=== PATIENT | male | born 1940 | race Caucasian/White ===

== ENCOUNTER → 2018-12-13 | Outpatient (CLI) | payer MEDICARE, OTHER, SELFPAY ==
[2018-12-13 07:52] VITALS: BP 128/63; PULSE 69; RESP 16; TEMP 36.4; O2SAT 98; BMI 26.8
== END | disposition home or self-care (01) ==
PROVIDERS: Family Provider Family Medicine; PCP Family Medicine; Referring Provider Internal Medicine Rheumatology; Visit Provider Internal Medicine Rheumatology
DX: L40.59 Other psoriatic arthropathy (principal)
CPT/HCPCS: 96365; J7050; A4216; J1602

== ENCOUNTER → 2019-01-10 | Outpatient (CLI) | payer MEDICARE, OTHER, SELFPAY ==
[2018-12-13 07:52] VITALS: BMI 26.8
[2019-01-10 07:48] VITALS: BP 122/68; PULSE 61; RESP 18; TEMP 36.5; O2SAT 100; BMI 26.3
== END | disposition home or self-care (01) ==
LOC: MEDOUTP 07:15
PROVIDERS: Family Provider Family Medicine; PCP Family Medicine; Referring Provider Internal Medicine Rheumatology; Visit Provider Internal Medicine Rheumatology
DX: L40.59 Other psoriatic arthropathy (principal)
CPT/HCPCS: 96365; J7050; A4216; J1602

== ENCOUNTER → 2019-03-07 | Outpatient (CLI) | payer MEDICARE, OTHER, SELFPAY ==
[2019-01-10 07:48] VITALS: BMI 26.3
[2019-03-07 07:51] VITALS: BP 160/76; PULSE 67; RESP 18; TEMP 36.3; O2SAT 97; BMI 27.3
== END | disposition home or self-care (01) ==
LOC: MEDOUTP 07:35
PROVIDERS: Family Provider Family Medicine; PCP Family Medicine; Referring Provider Internal Medicine Rheumatology; Visit Provider Internal Medicine Rheumatology
DX: L40.59 Other psoriatic arthropathy (principal)
CPT/HCPCS: 96365; J7050; A4216; J1602

== ENCOUNTER → 2019-05-01 07:35 | Outpatient (CLI) | payer MEDICARE, OTHER, SELFPAY ==
[2019-03-07 07:51] VITALS: BMI 27.3
[2019-05-01 07:52] VITALS: BP 145/71; PULSE 68; RESP 16; TEMP 35.6; O2SAT 98; BMI 27.1
[2019-05-01 09:39] VITALS: BP 165/73; PULSE 57; RESP 16
== END ==
PROVIDERS: Family Provider Family Medicine; PCP Family Medicine; Referring Provider Internal Medicine Rheumatology; Visit Provider Internal Medicine Rheumatology
DX: L40.50 Arthropathic psoriasis, unspecified (principal)
CPT/HCPCS: 96365; J7050; A4216; J1602

== ENCOUNTER → 2019-06-26 07:39 | Outpatient (CLI) | payer MEDICARE, OTHER, SELFPAY ==
[2019-05-01 07:52] VITALS: BMI 27.1
[2019-06-26 07:47] VITALS: BP 157/74; PULSE 83; RESP 16; TEMP 36.2; O2SAT 91; BMI 27.4
[2019-06-26 09:29] VITALS: BP 148/73; PULSE 62; RESP 16
== END ==
PROVIDERS: Family Provider Family Medicine; PCP Family Medicine; Referring Provider Internal Medicine Rheumatology; Visit Provider Internal Medicine Rheumatology
DX: L40.59 Other psoriatic arthropathy (principal)
CPT/HCPCS: 96365; J7050; A4216; J1602

== ENCOUNTER → 2019-08-21 | Outpatient (CLI) | payer MEDICARE, OTHER, SELFPAY ==
[2019-05-01 07:52] VITALS: BMI 27.1
[2019-06-26 07:47] VITALS: BMI 27.4
[2019-08-21 07:51] VITALS: BP 137/76; PULSE 78; RESP 18; TEMP 36.3; O2SAT 98; BMI 26.9
[2019-08-21] MEDS: 0.9% NaCl Peripheral Flush Adult/Peds IV (08:04)
[2019-08-21] MEDS: 0.9% NaCl IVPB Med Flush (250 mL) 15 ML IV (08:51)
== END | disposition home or self-care (01) ==
LOC: MEDOUTP 07:37
PROVIDERS: PCP Family Medicine; Referring Provider Internal Medicine Rheumatology; Visit Provider Internal Medicine Rheumatology
DX: L40.59 Other psoriatic arthropathy (principal)
CPT/HCPCS: 96365; J7050; A4216; J1602

== ENCOUNTER → 2019-10-16 07:52 | Outpatient (CLI) | payer MEDICARE, OTHER, SELFPAY ==
[2019-06-26 07:47] VITALS: BMI 27.4
[2019-08-21 07:51] VITALS: BMI 26.9
[2019-10-16] MEDS: 0.9% NaCl Peripheral Flush Adult/Peds IV (08:19)
[2019-10-16] MEDS: 0.9% NaCl IVPB Med Flush (250 mL) 15 ML IV (08:25)
[2019-10-16 08:32] VITALS: BP 129/70; PULSE 72; RESP 16; TEMP 36.6; O2SAT 99; BMI 25.7
== END ==
PROVIDERS: PCP Family Medicine; Referring Provider Internal Medicine Rheumatology; Visit Provider Internal Medicine Rheumatology
DX: L40.59 Other psoriatic arthropathy (principal); L40.8 Other psoriasis; M15.9 Polyosteoarthritis, unspecified; M48.061 Spinal stenosis, lumbar region without neurogenic claudication; Z85.46 Personal history of malignant neoplasm of prostate; Z79.899 Other long term (current) drug therapy
CPT/HCPCS: 96365; 36415; 80053; 85025; J7050; A4216; J1602

== ENCOUNTER → 2019-10-16 | Outpatient (CLI) | payer MEDICARE, OTHER, SELFPAY ==
[2019-06-26 07:47] VITALS: BMI 27.4
[2019-10-16 08:32] VITALS: BMI 25.7
[2019-10-16 12:41] LABS: Absolute Lymphocyte Count 0.92 X10^3/uL (0.83-4.51); Absolute Neutrophil Count 3.2 X10^3/uL (2.0-7.7); Basophil# 0.05 X10^3/uL; Basophil% 0.9 % (0-1); Eosinophil# 0.28 X10^3/uL; Eosinophils% 5.1 % (0-5); Hematocrit 40.7 % (40-54); Lymphocyte # 0.92 X10^3/ul (4.0); Lymphocyte % 16.8 % (19-41); Mean Corp Hgb Conc 31.9 g/dL (32-36); Mean Corpuscular Hgb 32.2 pg (27.0-32.0); Mean Corpuscular Volume 100.7 fL (80-94); Mean Platelet Vol. 10.7 fl (6.2-12.0); Monocyte% 18.2 % (0-10); NRBC Flagged by Analyzer 0 % (0-5); Neutrophil % 58.5 % (47-70); Platelet Count 203 K/mm3 (150-450); RBC Distribution Width CV 16.1 % (11.6-14.6); RBC Distribution Width SD 59.2 fl (35.1-43.9); Red Blood Count 4.04 M/mm3 (4.6-6.2); White Blood Count 5.5 K/mm3 (4.4-11.0)
[2019-10-16 13:01] LABS: ALB/GLOB Ratio 1.2 RATIO (0.9-2.4); AST(SGOT) 23 U/L (15-37); Alanine Aminotransfer ALT/SGPT 26 U/L (16-61); Albumin, Serum 3.6 g/dL (3.2-5.0); Alkaline Phosphatase 50 U/L (45-117); Anion Gap 8 (5-15); BUN 19 mg/dL (7-18); BUN/Creat Ratio 19.5 RATIO (10-20); Calcium,Total 9.1 mg/dL (8.5-10.1); Chloride 105 mmol/L (98-107); Creatinine, Serum 0.97 mg/dL (0.70-1.30); EST Glomerular Filtration Rate 79 mL/min (>60); Est Glom Filt Rate - Afr Amer 96 mL/min (>60); Globulin 2.9 g/dL (2.2-4.2); Glucose 105 mg/dL (74-106); Potassium 4.2 mmol/L (3.5-5.1); Protein, Total 6.5 g/dL (6.4-8.2); Sodium Level 139 mmol/L (136-145)
== END | disposition home or self-care (01) ==
LOC: MTLAB 09:38
PROVIDERS: PCP Family Medicine; Referring Provider Internal Medicine Rheumatology; Visit Provider Internal Medicine Rheumatology
DX: L40.59 Other psoriatic arthropathy (principal)
CPT/HCPCS: 36415; 80053; 85025

== ENCOUNTER → 2019-12-12 | Outpatient (CLI) | payer MEDICARE, OTHER, SELFPAY ==
[2019-08-21 07:51] VITALS: BMI 26.9
[2019-10-16 08:32] VITALS: BMI 25.7
[2019-12-12 08:10] VITALS: BP 135/67; PULSE 65; RESP 16; TEMP 36.2; O2SAT 100; BMI 25.6
[2019-12-12] MEDS: 0.9% NaCl Peripheral Flush Adult/Peds IV (08:23)
[2019-12-12] MEDS: 0.9% NaCl IVPB Med Flush (250 mL) 15 ML IV (08:42)
[2019-12-12 09:38] VITALS: BP 140/78; PULSE 55; RESP 16; O2SAT 100
== END | disposition home or self-care (01) ==
LOC: MEDOUTP 08:03
PROVIDERS: PCP Family Medicine; Referring Provider Internal Medicine Rheumatology; Visit Provider Internal Medicine Rheumatology
DX: L40.59 Other psoriatic arthropathy (principal)
CPT/HCPCS: 96365; J7050; A4216; J1602

== ENCOUNTER → 2020-02-07 | Outpatient (CLI) | payer MEDICARE, OTHER, SELFPAY ==
[2019-12-12 08:10] VITALS: BMI 25.6
[2020-02-07 08:02] VITALS: BP 153/80; PULSE 83; RESP 16; TEMP 36.3; O2SAT 99; BMI 25.9
[2020-02-07] MEDS: 0.9% NaCl IVPB Med Flush (250 mL) 15 ML IV (08:31)
[2020-02-07] MEDS: 0.9% NaCl Peripheral Flush Adult/Peds IV (08:34)
[2020-02-07 09:18] VITALS: BP 143/73; PULSE 56; RESP 18; TEMP 36.2; O2SAT 100
== END | disposition home or self-care (01) ==
LOC: MEDOUTP 07:42
PROVIDERS: PCP Family Medicine; Referring Provider Internal Medicine Rheumatology; Visit Provider Internal Medicine Rheumatology
DX: L40.59 Other psoriatic arthropathy (principal)
CPT/HCPCS: 96413; J7050; A4216; J1602

== ENCOUNTER → 2020-04-03 07:50 | Outpatient (CLI) | payer MEDICARE, OTHER, SELFPAY ==
[2019-12-12 08:10] VITALS: BMI 25.6
[2020-02-07 08:02] VITALS: BMI 25.9
[2020-04-03] MEDS: 0.9% NaCl IVPB Med Flush (250 mL) 15 ML IV (08:12)
[2020-04-03] MEDS: 0.9% NaCl Peripheral Flush Adult/Peds IV (08:13)
[2020-04-03 08:15] VITALS: BP 126/96; PULSE 76; RESP 16; TEMP 36.9; O2SAT 100; BMI 26.5
[2020-04-03 09:28] VITALS: BP 146/76; PULSE 74; RESP 16; TEMP 36.8
== END ==
PROVIDERS: PCP Family Medicine; Visit Provider Internal Medicine Rheumatology
DX: L40.59 Other psoriatic arthropathy (principal)
CPT/HCPCS: 96365; J7050; A4216; J1602

== ENCOUNTER → 2020-05-29 07:50 | Outpatient (CLI) | payer MEDICARE, OTHER, SELFPAY ==
[2020-02-07 08:02] VITALS: BMI 25.9
[2020-04-03 08:15] VITALS: BMI 26.5
[2020-05-29 08:06] VITALS: BP 136/70; PULSE 82; RESP 16; TEMP 36.9; O2SAT 98; BMI 26.9
[2020-05-29] MEDS: 0.9% NaCl IVPB Med Flush (250 mL) 15 ML IV (08:38)
== END ==
PROVIDERS: PCP Family Medicine; Referring Provider Internal Medicine Rheumatology; Visit Provider Internal Medicine Rheumatology
DX: L40.59 Other psoriatic arthropathy (principal)
CPT/HCPCS: 96365; 96413; J7050; A4216; J1602

== ENCOUNTER → 2020-07-24 07:41 | Outpatient (CLI) | payer MEDICARE, OTHER, SELFPAY ==
[2020-04-03 08:15] VITALS: BMI 26.5
[2020-05-29 08:06] VITALS: BMI 26.9
[2020-07-24 08:02] VITALS: BP 133/72; PULSE 81; RESP 16; TEMP 36.2; O2SAT 98; BMI 26.2
[2020-07-24] MEDS: 0.9% NaCl Peripheral Flush Adult/Peds IV (08:08)
[2020-07-24] MEDS: 0.9% NaCl IVPB Med Flush (250 mL) 15 ML IV (08:08)
[2020-07-24 09:31] VITALS: BP 127/73; PULSE 75; RESP 16; TEMP 36.2; O2SAT 98
== END ==
PROVIDERS: PCP Family Medicine; Referring Provider Internal Medicine Rheumatology; Visit Provider Internal Medicine Rheumatology
DX: L40.59 Other psoriatic arthropathy (principal)
CPT/HCPCS: 96365; 96413; J7050; A4216; J1602

== ENCOUNTER → 2020-09-18 08:49 | Outpatient (CLI) | payer MEDICARE, OTHER, SELFPAY ==
[2019-10-16 08:32] VITALS: BMI 25.7
[2020-07-24 08:02] VITALS: BMI 26.2
[2020-09-18 09:33] VITALS: BP 119/63; PULSE 72; RESP 16; TEMP 36.1; O2SAT 97; BMI 26.1
[2020-09-18] MEDS: 0.9% NaCl Peripheral Flush Adult/Peds IV (09:35)
[2020-09-18] MEDS: 0.9% NaCl IVPB Med Flush (250 mL) 15 ML IV (09:35)
== END ==
PROVIDERS: PCP Family Medicine; Referring Provider Internal Medicine Rheumatology; Visit Provider Internal Medicine Rheumatology
DX: L40.59 Other psoriatic arthropathy (principal)
CPT/HCPCS: 96365; J7050; A4216; J1602

== ENCOUNTER → 2020-11-13 07:34 | Outpatient (CLI) | payer MEDICARE, OTHER, SELFPAY ==
[2020-07-24 08:02] VITALS: BMI 26.2
[2020-09-18 09:33] VITALS: BMI 26.1
[2020-11-13 07:51] VITALS: BP 150/80; PULSE 82; RESP 16; TEMP 35.7; O2SAT 96; BMI 26.1
[2020-11-13 09:07] VITALS: BP 122/66; PULSE 55; RESP 16; TEMP 35.7; O2SAT 97
== END ==
PROVIDERS: PCP Family Medicine; Referring Provider Internal Medicine Rheumatology; Visit Provider Internal Medicine Rheumatology
DX: L40.59 Other psoriatic arthropathy (principal)
CPT/HCPCS: 96365; J7050; A4216; J1602

== ENCOUNTER → 2021-01-08 07:40 | Outpatient (CLI) | payer MEDICARE, OTHER, SELFPAY ==
[2020-09-18 09:33] VITALS: BMI 26.1
[2021-01-08 08:01] VITALS: BP 134/72; PULSE 73; RESP 16; TEMP 36.9; O2SAT 100; BMI 26.1
[2021-01-08] MEDS: 0.9% NaCl Peripheral Flush Adult/Peds IV (08:03)
[2021-01-08] MEDS: 0.9% NaCl IVPB Med Flush (250 mL) 15 ML IV (08:21)
[2021-01-08 09:04] VITALS: BP 144/85; PULSE 66; RESP 18; TEMP 37.1; O2SAT 98
== END ==
PROVIDERS: PCP Family Medicine; Referring Provider Internal Medicine Rheumatology; Visit Provider Internal Medicine Rheumatology
DX: L40.59 Other psoriatic arthropathy (principal)
CPT/HCPCS: 96365; J7050; A4216; J1602

== ENCOUNTER → 2021-01-11 07:51 | Outpatient (CLI) | payer MEDICARE, OTHER, SELFPAY | PROVIDERS: PCP Family Medicine | DX: C61 Malignant neoplasm of prostate (principal) | CPT/HCPCS: 36415; 84153; G0103 ==

== ENCOUNTER → 2021-03-05 07:37 | Outpatient (CLI) | payer MEDICARE, OTHER, SELFPAY ==
[2021-03-05 07:59] VITALS: BP 150/57; PULSE 83; RESP 16; TEMP 36.4; BMI 25.7
[2021-03-05] MEDS: 0.9% NaCl Peripheral Flush Adult/Peds IV (08:06)
[2021-03-05] MEDS: 0.9% NaCl IVPB Med Flush (250 mL) 15 ML IV (08:11)
[2021-03-05 09:37] VITALS: BP 155/70; PULSE 67; RESP 16; TEMP 36.8
== END ==
PROVIDERS: PCP Family Medicine; Referring Provider Internal Medicine Rheumatology; Visit Provider Internal Medicine Rheumatology
DX: L40.59 Other psoriatic arthropathy (principal)
CPT/HCPCS: 96365; J7050; A4216; J1602

== ENCOUNTER 2021-04-30 07:39 | Outpatient (CLI) | payer MEDICARE, OTHER, SELFPAY ==
[2021-04-30 08:03] VITALS: BP 142/81; PULSE 74; RESP 16; TEMP 36.5; O2SAT 98; BMI 25.3
[2021-04-30] MEDS: 0.9% NaCl Peripheral Flush Adult/Peds IV (08:18)
[2021-04-30] MEDS: 0.9% NaCl IVPB Med Flush (250 mL) 15 ML IV (08:18)
== END 2021-04-30 23:59 | disposition short-term general hospital (02) ==
LOC: MEDOUTP 07:41
PROVIDERS: PCP Family Medicine; Referring Provider Internal Medicine Rheumatology; Visit Provider Internal Medicine Rheumatology
DX: L40.59 Other psoriatic arthropathy (principal)
CPT/HCPCS: 96365; J7050; A4216; J1602

== ENCOUNTER → 2021-11-16 | Outpatient (CLI) | payer MEDICARE, OTHER, SELFPAY ==
--- NOTE | 2021-11-16 10:00 | RAD_ITS ---
STUDY: X-RAY - ORBITS REASON FOR EXAM: Male, 81 years old. HX METAL TO EYE,,PRE MRI -- 11/16/21 TECHNIQUE: 2 view(s) of the orbits were obtained. COMPARISON: None. FINDINGS: There is evidence of a thin metallic plate overlying the floor of the left orbit in keeping with prior ORIF of a left orbital floor fracture. Normal visualized facial bones. Normal paranasal sinuses. The soft tissue structures are unremarkable. RAD/Orbits for Foreign Body IMPRESSION: Fine linear metallic plate transfixing the left orbital floor. Electronically Signed: Lonnie Santos MD at 10:16 EDT ,
--- NOTE | 2021-11-16 10:45 | MRI_ITS ---
STUDY: MRI RIGHT ANKLE WITHOUT CONTRAST REASON FOR EXAM: Right ankle swelling and decreased range of motion, injury in March, unable to flex toes. TECHNIQUE: Standardized fat and water weighted pulse sequences were obtained in all 3 orthogonal planes. COMPARISON: None. FINDINGS: There is edema in the subcutis adipose space. There is a small volume of fluid in the proximal posterior tibialis tendon sheath (T2 axial images 3-5). The posterior tibialis tendon is morphologically normal. There is fluid in the flexor digitorum longus tendon sheath proximal and distal to the sustentaculum ximena (T2 axial images 6-10, 18-24). The visualized flexor digitorum longus tendon is morphologically normal. There is fluid in the flexor hallucis longus tendon sheath proximal and distal to the sustentaculum ximena (inversion recovery sagittal images 11, 12, 14). There is fluid in the retromalleolar and submalleolar peroneal tendon sheath (inversion recovery sagittal images 21, 22). There is a longitudinal split of the retromalleolar and submalleolar peroneus brevis tendon (T2 axial images 11-18). There is no demonstrated peroneus longus tendon tear. Normal tibialis anterior tendon. Normal extensor hallucis longus tendon. Normal extensor digitorum longus tendons. Normal Achilles tendon and teno-osseous insertion. Normal plantar fascia. Normal plantar calcaneal tubercles. Normal intrinsic muscles of the rearfoot. Normal distal tibiofibular syndesmotic ligamentous complex. There is a chronic partial tear of the anterior talofibular ligament (T2 axial image 19). There is attenuation of the calcaneofibular ligament (T2 axial image 21) consistent with chronic partial tear. There is edema in the sinus tarsi (inversion recovery sagittal images 18, 19). Normal deltoid ligamentous complexes. There is thickening of the plantar calcaneonavicular (spring) ligament (T2 axial image 18). There is advanced arthrosis of the tibiotalar articulation with anterior marginal osteophytes, chondral loss (T2 coronal images 14-20), lateral tilt of the patella (T2 coronal image 17) and osteochondral lesions of the anterior talar dome and opposing tibial plafond (T1 sagittal images 18, 19), the talar dome lesion measuring 1.2 cm in AP dimension. There is bone edema of the visualized distal tibia and talus (inversion recovery sagittal images 12-21), a stress phenomenon. There is edema in the distal fibula (T2 coronal images 11-14), a stress phenomenon. There is posterior subtalar arthrosis with chondral thinning (T1 sagittal image 16). There is a small focus of bone edema in the superior aspect of the posterior tuberosity of the calcaneus (inversion recovery sagittal images 14-16), a stress phenomenon. There is mild arthrosis of the talonavicular articulation with mild chondral thinning (T1 sagittal image 16). Normal calcaneocuboid articulation. There is mild bone edema in the anterior superior calcaneal process (inversion recovery sagittal images 17-19), a stress phenomenon. Normal navicular-cuneiform articulations. There is arthrosis of the second tarsometatarsal articulation with chondral thinning (T2 axial image 22). There is arthrosis of the third through fifth tarsometatarsal articulations with chondral thinning and subchondral bone edema (inversion recovery sagittal images 18-20). 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 Bone edema of the distal tibia, distal fibula, talus, and calcaneus, a stress phenomenon. 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 Thickening of the spring ligament. Longitudinal split of the peroneus brevis tendon and peroneal tenosynovitis. Posterior tibialis, flexor digitorum longus and flexor hallucis longus tenosynovitis. Edema in the sinus tarsi. Electronically Signed: Kostas Cedeno MD at 18:25 EDT ,
== END | disposition home or self-care (01) ==
LOC: MRI 09:44
PROVIDERS: PCP Family Medicine; Referring Provider Podiatrist; Visit Provider Podiatrist
DX: Z01.818 Encounter for other preprocedural examination (principal); M19.071 Primary osteoarthritis, right ankle and foot
CPT/HCPCS: 70030; 73721

== ENCOUNTER 2022-01-21 13:17 | Inpatient (IN) | payer MEDICARE, OTHER, SELFPAY ==
[2022-01-21] VITALS (13 sets, daily range): BP systolic 113–171; BP diastolic 65–96; PULSE 61–104; RESP 16–18; TEMP 35.9–37.3; O2SAT 96–100; BMI 24.3
--- NOTE | 2022-01-21 | BON_PTH ---
PATIENT: BRIDGETTE WILCOX LOC: MS3 U#:[id number] AGE/SX: 81/M ROOM: ME312 RE01/21/[address]: Dr. Aram Vidal DPM : 1940 BED: 1 DIS: 01/23/2022 SPEC #: [id number] RECD: 01/21/22 14:22 STATUS: CATARINO KAL #: [id number] VERNA: 01/21/22 00:[address]: Aram Vidal DEPT: SURGICAL PATHOLOGY RECD BY: Rosalino Maddox ENTERED: 01/24/22 10:37 SP TYPE: Bone OTHR DR: DO Dr. Steve Ornelas MD Tissues: A - Bone of foot, NOS C - Bone of foot, NOS Procedures: Decalcification bone/plaque Surgery Specimen Level III HEADER OPERATION: Ankle and subtalar joint fusion arthrodesis PRE-OP DIAGNOSIS: Osteoarthritis/rheumatoid; arthritis foot/ankle; deformed ankle; painful TISSUE SUBMITTED: A ? Debrided right ankle bone, B - Debrided right ankle subtalar joint MICROSCOPIC DIAGNOSIS A. Bone of right ankle, excision: Bone with reparative, reactive and degenerative change. B. Bone of right ankle, excision: Bone with reparative, reactive and degenerative change. AM:gregg 01/27/2022 MICROSCOPIC DESCRIPTION Slides are reviewed. GROSS DESCRIPTION A - Received in fixative is one container labeled with the patient's name and designated debrided right ankle bone. The specimen consists of multiple fragments of bone that in aggregate measure 5 x 4 x 1 cm. Shipfitter sections are submitted in two cassettes after decalcification. B - Received in fixative is one container labeled with the patient's name and designated debrided subtalar joint right. The specimen consists of multiple fragments of bone that in aggregate measure 3 x 2.5 x 0.3 cm. The entire specimen is submitted in one cassette after decalcification. / SJ:gregg 01/24/2022 TC:5 CPT: 08790 x2, 19783 x2
--- NOTE | 2022-01-21 | BON_PTH ---
PATIENT: BRIDGETTE WILCOX LOC: MS3 U#:[id number] AGE/SX: 81/M ROOM: OR312 RE01/21/[address]: Dr. Aram Vidal DPM : 1940 BED: 1 DIS: 01/23/2022 SPEC #: [id number] RECD: 01/21/22 14:22 STATUS: CATARINO KAL #: [id number] VERNA: 01/21/22 00:[address]: Aram Vidal DEPT: SURGICAL PATHOLOGY RECD BY: Rosalino Maddox ENTERED: 01/24/22 10:37 SP TYPE: Bone OTHR DR: DO Dr. Steve Ornelas MD Tissues: A - Bone of foot, NOS C - Bone of foot, NOS Procedures: Decalcification bone/plaque Surgery Specimen Level III HEADER OPERATION: Ankle and subtalar joint fusion arthrodesis PRE-OP DIAGNOSIS: Osteoarthritis/rheumatoid; arthritis foot/ankle; deformed ankle; painful TISSUE SUBMITTED: A ? Debrided right ankle bone, B - Debrided right ankle subtalar joint MICROSCOPIC DIAGNOSIS A. Bone of right ankle, excision: Bone with reparative, reactive and degenerative change. Skin with hyperkeratosis. B. Bone of right ankle, excision: Bone with reparative, reactive and degenerative change. Skin with hyperkeratosis. AM:gregg 01/27/2022 MICROSCOPIC DESCRIPTION Slides are reviewed. GROSS DESCRIPTION A - Received in fixative is one container labeled with the patient's name and designated debrided right ankle bone. The specimen consists of multiple fragments of bone that in aggregate measure 5 x 4 x 1 cm. Funeral Location Manager sections are submitted in two cassettes after decalcification. B - Received in fixative is one container labeled with the patient's name and designated debrided subtalar joint right. The specimen consists of multiple fragments of bone that in aggregate measure 3 x 2.5 x 0.3 cm. The entire specimen is submitted in one cassette after decalcification. / SJ:gregg 01/24/2022 TC:5 CPT: 58344 x2, 68234 x2
--- NOTE | 2022-01-21 08:40 | RAD_ITS ---
STUDY: INTRAOPERATIVE FLUOROSCOPY TECHNIQUE: The examination was performed with referring physician in attendance. Under fluoroscopic observation, fluoroscopic images were obtained. Radiologist was not present for the study. Radiologist did not perform the procedure. This dictation is for documentation of the radiation dosage only. There is no interpretation of the images. TOTAL NUMBER OF IMAGES: 1 COMPARISON: None RADIATION DOSE: 2.6 mGy FLUOROSCOPY TIME: 60 seconds REASON FOR EXAM: RT ANKLE AND SUBTALAR FUSION ARTHRODESIS, FLUORO TIME 59.7 SEC Male, 81 years old. FINDINGS: Metal sideplate transfixes the tibial talar joint to the calcaneus. RAD/Ankle 2 Views IMPRESSION: Fluoroscopic assistance images were obtained. Dictation for documentation purposes only. Electronically Signed: Bart Martin MD at 16:31 EDT ,
[2022-01-21 08:50] LABS: Absolute Lymphocyte Count 1.14 X10^3/uL (0.83-4.51); Absolute Neutrophil Count 4.2 X10^3/uL (2.0-7.7); Basophil# 0.07 X10^3/uL; Basophil% 1.1 % (0-1); Eosinophils% 3.2 % (0-5); Hematocrit 36.2 % (40-54); Hemoglobin 11.9 g/dL (13.0-16.5); Lymphocyte # 1.14 X10^3/ul (0.83-4.51); Lymphocyte % 18.1 % (19-41); Mean Corp Hgb Conc 32.9 g/dL (32-36); Mean Corpuscular Hgb 33.3 pg (27.0-32.0); Mean Corpuscular Volume 101.4 fL (80-94); Monocyte# 0.69 X10^3/uL; NRBC Flagged by Analyzer 0 % (0-5); Neutrophil # 4.16 X10^3/uL (2.7-7.7); Neutrophil % 66.1 % (47-70); Platelet Count 223 K/mm3 (150-450); RBC Distribution Width CV 14.1 % (11.6-14.6); RBC Distribution Width SD 52.1 fl (35.1-43.9); Red Blood Count 3.57 M/mm3 (4.6-6.2); White Blood Count 6.3 K/mm3 (4.4-11.0)
[2022-01-21] MEDS: Lactated Ringers 1,000 ML 15 ML IV (08:56)
[2022-01-21 09:06] LABS: ALB/GLOB Ratio 0.9 RATIO (0.9-2.4); AST(SGOT) 19 U/L (15-37); Alanine Aminotransfer ALT/SGPT 15 U/L (16-61); Albumin, Serum 3.4 g/dL (3.2-5.0); Alkaline Phosphatase 61 U/L (45-117); Anion Gap 6 (5-15); BUN 19 mg/dL (7-18); BUN/Creat Ratio 18.4 RATIO (10-20); Calcium,Total 9.2 mg/dL (8.5-10.1); Chloride 106 mmol/L (98-107); Creatinine, Serum 1.03 mg/dL (0.70-1.30); EST Glomerular Filtration Rate 74 mL/min (>60); Est Glom Filt Rate - Afr Amer 89 mL/min (>60); Estimated Creatinine Clearance 58.15 ml/min; Globulin 3.6 g/dL (2.2-4.2); Glucose 97 mg/dL (74-106); Potassium 4.2 mmol/L (3.5-5.1); Sodium Level 139 mmol/L (136-145)
[2022-01-21] MEDS: Cefazolin 2 GM in 0.9% Normal Saline 100 ML IV (09:19)
--- NOTE | 2022-01-21 13:18 | RAD_ITS ---
EXAM: XR RIGHT ANKLE COMPLETE, 3 OR MORE VIEWS CLINICAL INDICATION: post op TECHNIQUE: Frontal, lateral and oblique views of the right ankle. This report was created using Woch[employer] report generation technology. COMPARISON: None. FINDINGS: BONES/JOINTS: There is a metal sideplate transfixing the distal tibia to the talus to the calcaneus. There are cortical screws holding the plate in place. There is an enthesophyte involving the posterior superior calcaneus at the site of insertion of the Achilles tendon. Talar spur noted. No acute fracture. No subluxation. Normal alignment. Preservation of the joint space. No sclerotic or destructive changes observed. SOFT TISSUES: Diffuse soft tissue swelling overlying the ankle. This is likely related to recent surgery. No radiopaque foreign body. OTHER FINDINGS: Fiberglas splint in place. IMPRESSION: Diffuse soft tissue swelling overlying the ankle. This is likely related to recent surgery. EXAM: XR RIGHT ANKLE COMPLETE, 3 OR MORE VIEWS CLINICAL INDICATION: post op TECHNIQUE: Frontal, lateral and oblique views of the right ankle. This report was created using Woch[employer] report generation technology. COMPARISON: None. FINDINGS: BONES/JOINTS: There is a metal sideplate transfixing the distal tibia to the talus to the calcaneus. There are cortical screws holding the plate in place. There is an enthesophyte involving the posterior superior calcaneus at the site of insertion of the Achilles tendon. Talar spur noted. No acute fracture. No subluxation. Normal alignment. Preservation of the joint space. No sclerotic or destructive changes observed. SOFT TISSUES: Diffuse soft tissue swelling overlying the ankle. This is likely related to recent surgery. No radiopaque foreign body. OTHER FINDINGS: Fiberglas splint in place. RAD/Ankle min 3 Views IMPRESSION: Diffuse soft tissue swelling overlying the ankle. This is likely related to recent surgery. Electronically Signed: Bart Martin MD at 16:34 EDT ,
--- NOTE | 2022-01-21 13:25 | PCM.OPRPT ---
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 Debrided right ankle joint sent to pathology 2. Debrided right subtalar joint sent to pathology Estimated Blood Loss (mL): 40mL Description of Procedure: Indications: This is a 81 year old gentleman with history of significant arthritis who developed severe arthritic changes and deformity to the right ankle. He has significant pain causing severe limitation in activity, despite nonsurgical care. He has elected to undergo ankle and subtalar joint arthrodesis. This procedure, as the rationale of the procedure, has been discussed with him in great detail, we have discussed and reviewed the possible benefits vs risks, and all potential complications. We discussed and reviewed the goals and expectations. We discussed and reviewed all of the alternative options. We discussed and reviewed estimated healing time/post operative course. He expressed understanding and agreement and the patient elected to proceed forward. The consent forms were reviewed with him, and he freely signed them. All of his questions were answered. No guarantees were given or implied. Operative procedure: The patient was brought back into the operating room, he received general anesthesia. A well padded pneumatic tourniquet was applied around the right thigh. The patient received 2 grams of IV Cephazolin for antibiotic prophylaxis. The patient was carefully positioned in the prone position, and he was well padded. The right and left lower extremities were scrubbed, prepped, and draped in the usual aseptic fashion. A timeout was performed and the patient was properly identified and the surgical plan was confirmed. The right ankle was elevated for three minutes and the right thigh pneumatic tourniquet was inflated to 300mmHg. Right Ankle and Subtalar Joint Arthrodesis: Using a 15 scalpel blade an incision was made overlying the ankle joint and also the subtalar joint, posterior to the Achilles tendon. Careful dissection was completed down to the Achilles tendon. The Achilles tendon was incised down the middle splinting the tendon longitudinally. Direction was completed down to the posterior ankle joint capsule, the medial neurovascular bundle was protected out of the away medially. The flexor hallucis longus tendon and muscle belly were identified and reflected medially as well. The posterior ankle joint capsule was visualized. The capsule was incised using a 15 scalpel blade and reflected from the posterior aspect, exposing the joint surfaces. The ankle has severe degenerative changes and there was significant varus deformity. The joint was yellow, nonviable and severely worn away, there was small cyst like soft tissue masses of synovial fluid around the joint. There was contracture of the surrounding soft tissues. The bone was unhealthy to the joint. But there was no evidence of necrosis, purulence or evidence of abscess present. All nonviable tissue was debrided from the site, all cartilage was debrided (using bone curettes, sagittal saw and power rasp - being sure not to cause osteonecrosis) from the ankle joint surfaces debrided down to healthy viable bleeding bone, and all soft tissue cyst/masses were excised. The debrided tissue (bone and soft tissue) was sent to pathology. The ankle joint surfaces were further prepped with a 2.7mm drill fenestrating the joint surfaces. Due to the amount of unhealthy bone which had to be removed a iliac bone allograft was placed and shaped in a fashion to create a wedge to remove the varus deformity, the site was further packed with cancellous bone allograft and Augment was placed to the prepped joint surfaces cordwood cutter helper fusion as well. Dissection was completed down to the posterior subtalar joint capsule, the medial neurovascular bundle was protected out of the away medially. The flexor hallucis longus tendon and muscle belly were identified and reflected medially as well. The posterior subtalar joint joint capsule was visualized. The capsule was incised using a 15 scalpel blade and reflected from the posterior aspect, exposing the joint surfaces. The subtalar joint had degenerative changes and there was varus deformity. The joint was yellow, nonviable and worn devaughn. There was contracture of the surrounding soft tissues. The bone was unhealthy to the joint. But there was no evidence of necrosis, purulence or evidence of abscess present. All nonviable tissue was debrided from the site, all cartilage was debrided (using bone curettes, sagittal saw and power rasp - being sure not to cause osteonecrosis) from the joint surfaces debrided down to healthy viable bleeding bone and sent to pathology. The subtalar joint surfaces were further prepped with a 2.7mm drill fenestrating the joint surfaces. To help reduce the varus deformity a iliac bone allograft was placed and shaped in a fashion to create a wedge to remove the varus deformity, Augment was also placed to the prepped joint surfaces cordwood cutter helper fusion as well. The deformity and osteotomy ends brought together. It was noted the ankle, subtalar joint, and hindfoot were corrected in good position, with the talus and calcaneus noted to be rectus under the tibial, and clinically the foot was plantigrade with neutral flexion, and it was noted the heel was in vertical position. The hindfoot/ankle was fixated using rigid open reduction internal fixation technique. [facility] posterior TTC locking plate with 5.5mm locking screws and 5.5mm nonlocking cortical screw were used to secure the plate across the arthrodesis sites using rigid open reduction internal fixation technique. There was excellent stability present with good alignment present. Alignment and placement were confirmed visually and also using intra operative fluoroscopy. Clinically the right foot/ankle was symmetric to the left foot/ankle. The ankle and subtalar joints were rigidly fixated, very stable, and in good alignment with excellent bone compression across the sites. The surgical site was flushed out with copious amounts of normal saline solution. The right thigh pneumatic tourniquet was deflated at 120 minutes. There was immediate return of warmth and perfusion. CFT < 2 seconds to all toes, and normal temperature present. Pedal pulses were intact. Hemostasis was achieved prior to closure. The joint capsules and deep fascia layer were reapproximated using 2-0 Vicryl, the sides of the Achilles tendon were brought together and reapproximated using 2-0 Vicryl, the subcutaneous tissue layer was reapproximated using 3-0 Vicryl. The skin was reapproximated using 3-0 Nylon. A dressing was applied which consisted of Betadine soaked Adaptic, 4x4 gauze, Kerlix, harsha bandages, and a well padded below knee posterior splint secured with harsha bandages with heel/incision offloaded. The patient tolerated the procedure and the anesthesia well with no complications. The patient was transported from the operating room to the recovery room with vital signs stable and in good condition. The patient will be admitted for post operative pain control and observation, and nursing facility placement. Hospitalist was consulted. Post operative orders were placed. Post operative xrays of the ankle (3 views) were obtained in the recovery room which were reviewed; with ankle and subtalar joint in good alignment, with stable fixation across the arthrodesis sites, no complications seen. He will be followed as an inpatient. Grafts/Implants Used: [facility] plate + screws, bone allograft Complications None
--- NOTE | 2022-01-21 13:27 | HP.PCM_ITS ---
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 He has undergone extensive nonsurgical care however symptoms are worsening. He has elected to undergo surgical intervention which was completed today - right tibiotalocalcaneal arthrodesis. The procedure went well with no complications. The patient will need to be admitted for pain management and for nursing facility placement. [facility] Medical History (Updated 01/21/22 @ 13:[address] Aram Vidal, DP) Alcohol use Ambulates with cane Arthritis History of edema Hx of fracture of wrist Non-smoker Psoriatic arthritis Wears glasses Wears partial dentures Home Medications folic acid 1 mg tablet 2 mg PO DAILY 12/13/18 [History Last Taken Unknown] furosemide 20 mg tablet 20 mg PO DAILY 01/14/22 [History Last Taken Unknown] lorazepam 1 mg tablet 1 mg PO PRN PRN Anxiety 01/14/22 [History Last Taken Unknown] methotrexate sodium 25 mg/mL injection solution 22.5 mg IM QWEEK 01/14/22 [Hi story Last Taken 12/26/21] oxycodone-acetaminophen 5 mg-325 mg tablet 1 tab PO PRN PRN Pain 01/14/22 [History Last Taken Unknown] tamsulosin 0.4 mg capsule 0.4 mg PO DAILY 01/14/22 [History Last Taken Unknown] tizanidine 4 mg tablet 4 mg PO PRN PRN MUSCLE SPASMS 01/14/22 [History Last Taken Unknown] Allergy/AdvReac Type Severity Reaction Status Date / Time No Known Allergies Allergy Verified 01/21/22 08:48 Surgical History (Updated 01/14/22 @ 10:15 by Lizbeth Bautista) Hx of ankle fusion Hx of hernia repair Hx of shoulder surgery Hx of total knee replacement Social History Smoking Status: Never smoker Vital Signs Vital Signs Vital Signs: 01/21/22 08:49 01/21/22 08:49 01/21/22 13:20 Temperature 98.5 F 96.8 F L Temperature Source Temporal Temporal Pulse Rate 83 64 Respiratory Rate 16 16 Respiratory Pattern Normal Normal Blood Pressure 171/89 H 154/84 H Blood Pressure Mean 116 107 Blood Pressure Source Monitor Monitor Blood Pressure Position Semi-Fowlers Semi-Fowlers Blood Pressure Location Left Arm Right Arm Baseline BP 171/89 Pulse Ox 100 100 Oxygen Delivery Method Room Air Room Air Weight Weight: 74.571 kg Body Mass Index (BMI) 24.3 Physical Exam Narrative s/p right hindfoot/ankle surgery without complication - dressing/splint is clean, dry, and intact with no strikethrough, bleeding controlled, CFT < 2 seconds to all toes with normal temperature. Post op alignment maintained to right hindfoot/ankle. Const alert, oriented x3 and no apparent distress Results Lab / Micro Data Result Diagrams: 01/21/22 08:40 01/21/22 08:40 Labs: Laboratory Results - last 24 hr 01/21/22 08:40: WBC 6.3, RBC 3.57 L, Hgb 11.9 L, Hct 36.2 L, MCV 101.4 H, MCH 33.3 H, MCHC 32.9, RDW Std Deviation 52.1 H, RDW Coeff of Ricki 14.1, Plt Count 223, MPV 10.0, Immature Gran % (Auto) 0.500, Neut % (Auto) 66.1, Lymph % (Auto) 18.1 L, [place] % (Auto) 11.0 H, Eos % (Auto) 3.2, Baso % (Auto) 1.1 H, Absolute Neuts (auto) 4.2, Absolute Lymphs (auto) 1.14, Nucleated RBC % 0 01/21/22 08:40: Sodium 139, Potassium 4.2, Chloride 106, Carbon Dioxide 27.0, Anion Gap 6, BUN 19 H, Creatinine 1.03, Estim Creat Clear Calc 58.15, Est GFR (MDRD) Af Amer 89, Est GFR (MDRD) Non-Af 74, BUN/Creatinine Ratio 18.4, Glucose 97, Calcium 9.2, Total Bilirubin 0.60, AST 19, ALT 15 L, Alkaline Phosphatase 61, Total Protein 7.0, Albumin 3.4, Globulin 3.6, Albumin/Globulin Ratio 0.9 Assessment & Plan Assessment/Plan (1) Arthritis of ankle, right: (2) Acquired varus deformity of right ankle: (3) Pain in right ankle and joints of right foot: PLAN: Plan s/p right tibiotalocalcaneal arthrodesis on 01/21/2022 - patient admitted for post operative pain management and nursing facility placement. No weightbearing right foot. Keep right foot elevated with heel offloaded. Keep dressing/splint right foot/ankle/leg clean, dry and intact. Pain management: Dilaudid, Oxyir, and Acetaminophen. DVT Prophylaxis: Start Lovenox 40mg subcutaneous tomorrow. Hospitalist Service consult for patient's chronic medical problems - appreciate assistance.
--- NOTE | 2022-01-21 15:36 | CASEMGMT ---
GIANNI GRIMES Assessment: Face to Face with pt for initial transition planning/care coordination assessment. RN CORNELIO introduced self and role at [facility], pt voices understanding and consents to assessment. Pt is A/O x4 and answers all questions appropriately at this time. Pt sig other present in room for assessment. Care providers, pharmacy, and demographics verified/updated. Admitting Dx: R ankle joint arthrodesis PCP:Regan Specialists:Marcy, pod; Alberto, rheum; Radha, uro; Siria and Cade, derm Preferred Pharmacy: [facility] Insurance: Sunible, Pressable Plan Prescription Benefit: yes LW/HPOA: Pt has a LW/DPOA and states it is Caroline Schwartz. She has it here at the hospital and will provide to be scanned into the chart. LNOK: Caroline Schwartz, sig other Living Arrangements: Pt lives alone in a single story house with a ramp and 3 steps to enter with a rail on both sides. Pt reports he is I in ADL's and denies concerns at home. Transportation: Pt drives self and denies concerns with transportation. Sig other is also available to assist with transportation. DME/HHC/SNF: Pt has grab bars in the bathroom and at toilet, FWW, 4WW and straight cane. Pt denies hx of HHC or SNF stays. Pt states he would like to go to [facility]. He does not prefer to go anywhere else. Patient was provided a list of SNF providers including quality and resource use data and consistent with the patient?s preferred geographic region, medical needs, and insurance network were provided from the [employer] Guide. Pt still chooses [facility]. Updated SW. Pt states no further concerns/needs. CM to follow. Advised pt to ask CM if any further question/concerns/needs arise, voices understanding. Pt Goal: [facility] Plan: [facility] pending acceptance.
--- NOTE | 2022-01-21 15:40 | CASEMGMT ---
Social Work Per Dora RNCM, pt is requesting to go to TCU upon discharge. SW left VM with Dasha in TCU with new referral. Will await determination of acceptance. Plan: TCU, pending acceptance MARK Art
[2022-01-21] MEDS: Cefazolin 1 GM/50 ML BAG IV (16:34)
[2022-01-21] MEDS: oxyCODONE 5 MG Tablet PO (16:45)
--- NOTE | 2022-01-21 17:45 | PN.HOSP_ITS ---
Subjective Subjective Patient was seen and today in consultation at the request of podiatry, he underwent a fusion of his right ankle due to severe psoriatic arthritis. Patient receives treatment for the psoriatic arthritis with monthly infusions as an outpatient as well as taking methotrexate IM q. weekly, he is currently not taking prednisone according to his girlfriend. Objective Data Objective Data Vital Signs: Vital Signs Temp Pulse Resp BP Pulse Ox O2 Del Method 98 F 71 18 159/87 H 97 Room Air 01/21/22 16:36 01/21/22 16:36 01/21/22 16:36 01/21/22 16:36 01/21/22 16:36 01/21/22 16:36 Oxygen Delivery Method Room Air Weight: 74.571 kg Body Mass Index (BMI) 24.3 Intake & Output: Intake and Output for Last 24 Hours 01/19/22 01/20/22 01/21/22 23:59 23:59 23:59 Intake Total 1160 / 1160 Balance 1160 / 1160 Lab / Micro Data Result Diagrams: 01/21/22 08:40 01/21/22 08:40 Labs: Laboratory Results - last 24 hr 01/21/22 08:40: WBC 6.3, RBC 3.57 L, Hgb 11.9 L, Hct 36.2 L, MCV 101.4 H, MCH 33.3 H, MCHC 32.9, RDW Std Deviation 52.1 H, RDW Coeff of Ricki 14.1, Plt Count 223, MPV 10.0, Immature Gran % (Auto) 0.500, Neut % (Auto) 66.1, Lymph % (Auto) 18.1 L, Canadian % (Auto) 11.0 H, Eos % (Auto) 3.2, Baso % (Auto) 1.1 H, Absolute Neuts (auto) 4.2, Absolute Lymphs (auto) 1.14, Nucleated RBC % 0 01/21/22 08:40: Sodium 139, Potassium 4.2, Chloride 106, Carbon Dioxide 27.0, Anion Gap 6, BUN 19 H, Creatinine 1.03, Estim Creat Clear Calc 58.15, Est GFR (MDRD) Af Amer 89, Est GFR (MDRD) Non-Af 74, BUN/Creatinine Ratio 18.4, Glucose 97, Calcium 9.2, Total Bilirubin 0.60, AST 19, ALT 15 L, Alkaline Phosphatase 61, Total Protein 7.0, Albumin 3.4, Globulin 3.6, Albumin/Globulin Ratio 0.9 Radiography Diagnostic Testing: Radiology Impression Ankle X-Ray 01/21/22 08:40 IMPRESSION: Fluoroscopic assistance images were obtained. Dictation for documentation purposes only. Electronically Signed: Bart Martin MD at 16:31 EDT , Ankle X-Ray 01/21/22 13:18 IMPRESSION: Diffuse soft tissue swelling overlying the ankle. This is likely related to recent surgery. Electronically Signed: Bart Martin MD at 16:34 EDT , Physical Exam Const alert, oriented x3 and no apparent distress General Appearance: cooperative, well kempt and well developed Orientation / Consciousness: awake, oriented to person, oriented to place and oriented to time HEENT normocephalic and moist oral mucous membranes HEENT Narrative: Patient has a healing incisional area over the left outer ear Head and Scalp: normocephalic Eyes PERRL, EOMs intact bilaterally and conjunctivae normal Neck supple, no JVD, thyroid normal and no carotid bruits General: trachea midline Resp normal respiratory effort, no retractions, no use of accessory muscles and clear to auscultation bilaterally Auscultation: Negative for rales, rhonchi or wheezes Cardio regular rate, regular rhythm, S1 normal heart sound, S2 normal heart sound, no murmurs, no rub and no gallops GI normal to inspection, nondistended, normoactive bowel sounds, soft to palpation, non-tender and non-distended Extremity Extremity Narrative: Patient has severe deformities of the interphalangeal joints of his hands. He has limited range of motion in his fingers, patient's right lower leg is wrapped with surgical dressing at this time and was not examined. Neuro oriented x3, CN's II-XII intact bilaterally, no focal motor deficits and no sensory deficits noted Sensorium / Orientation: awake and alert Speech: speech normal Psych affect normal Assessment & Plan Assessment/Plan (1) Arthritis of ankle, right: PLAN: Plan 1. Severe psoriatic arthritis-patient is currently not going to be receiving methotrexate per direction of his back roll lathe operator due to his right ankle surgery. I have elected to place the patient on time release oxycodone #2 status post fusion right ankle-patient will be seen by PT and OT, he states he would like to go for short-term alf at [facility] #3 chronic anxiety-patient takes Ativan, I have ordered this every 6 hours as needed anxiety #4 BPH-patient states he has a history of prostate cancer but then states that he was never treated for the prostate cancer, I think it is likely that he has BPH, he states he has trouble urinating at times and has urinary hesitancy, I have elected to increase his Flomax 2.8 mg daily #5 Daily alcohol ingestion-according to podiatry, the patient's significant other states that the patient drinks approximately 2 cases of beer a week, I did not discuss this with the patient, again the patient will be placed on Ativan every 6 hours as needed, if the patient exhibits any alcohol withdrawal symptoms he may need to be placed on phenobarbital and CIWA scores with coverage with Ativan. Charges/Coding Visit Charges Inpatient E&M: 76948 Subs Hosp L3
[2022-01-21] MEDS: Petrolatum,White 5 GM PACKET 1 APPLIC TOPICAL (18:28)
[2022-01-21] MEDS: Doxycycline 100 MG CAPSULE PO (21:27)
[2022-01-21] MEDS: oxyCODONE HCl Cr 10 MG Tablet 20 MG PO (21:27)
[2022-01-21] MEDS: Lactulose 20 GM/30 ML UDC 10 GM PO (21:27)
[2022-01-21] MEDS: Tamsulosin HCl 0.4 MG Capsule 0.8 MG PO (21:32)
[2022-01-22] VITALS (10 sets, daily range): BP systolic 128–158; BP diastolic 69–93; PULSE 71–95; RESP 14–18; TEMP 36.8–38.4; O2SAT 96–99
[2022-01-22] MEDS: 0.9% Saline Lock 10 ML Syringe IV ×3 (00:16→16:43)
[2022-01-22] MEDS: Cefazolin 1 GM/50 ML BAG IV ×3 (00:16→16:40)
--- NOTE | 2022-01-22 00:43 | NURSING ---
Yen cathed under sterile procedures. Pt tolerated well.
[2022-01-22] MEDS: LORazepam 1 MG Tablet PO ×2 (02:25→15:02)
[2022-01-22] MEDS: Enoxaparin 40 MG/0.4 ML Syringe SC (05:08)
[2022-01-22] MEDS: oxyCODONE 5 MG Tablet PO (05:23)
[2022-01-22] MEDS: Acetaminophen 500 MG Tablet PO ×3 (05:24→18:15)
[2022-01-22 05:53] LABS: Absolute Lymphocyte Count 1.48 X10^3/uL (0.83-4.51); Absolute Neutrophil Count 7.2 X10^3/uL (2.0-7.7); Basophil# 0.02 X10^3/uL; Basophil% 0.2 % (0-1); Eosinophil# 0.02 X10^3/uL; Eosinophils% 0.2 % (0-5); Hematocrit 31.6 % (40-54); Hemoglobin 10.6 g/dL (13.0-16.5); Lymphocyte # 1.48 X10^3/ul (0.83-4.51); Lymphocyte % 14.6 % (19-41); Mean Corp Hgb Conc 33.5 g/dL (32-36); Mean Corpuscular Hgb 33.2 pg (27.0-32.0); Mean Corpuscular Volume 99.1 fL (80-94); Monocyte# 1.37 X10^3/uL; Monocyte% 13.5 % (0-10); NRBC Flagged by Analyzer 0 % (0-5); Neutrophil # 7.18 X10^3/uL (2.7-7.7); Platelet Count 215 K/mm3 (150-450); RBC Distribution Width CV 13.8 % (11.6-14.6); RBC Distribution Width SD 49.9 fl (35.1-43.9); Red Blood Count 3.19 M/mm3 (4.6-6.2); White Blood Count 10.1 K/mm3 (4.4-11.0)
[2022-01-22 06:19] LABS: ALB/GLOB Ratio 0.9 RATIO (0.9-2.4); AST(SGOT) 15 U/L (15-37); Alanine Aminotransfer ALT/SGPT 13 U/L (16-61); Albumin, Serum 2.9 g/dL (3.2-5.0); Alkaline Phosphatase 52 U/L (45-117); Anion Gap 7 (5-15); BUN 16 mg/dL (7-18); BUN/Creat Ratio 15.2 RATIO (10-20); Calcium,Total 8.7 mg/dL (8.5-10.1); Chloride 104 mmol/L (98-107); Creatinine, Serum 1.05 mg/dL (0.70-1.30); EST Glomerular Filtration Rate 72 mL/min (>60); Est Glom Filt Rate - Afr Amer 88 mL/min (>60); Estimated Creatinine Clearance 57.05 ml/min; Globulin 3.4 g/dL (2.2-4.2); Glucose 113 mg/dL (74-106); Protein, Total 6.3 g/dL (6.4-8.2); Sodium Level 137 mmol/L (136-145)
--- NOTE | 2022-01-22 08:31 | PCM.PROGNOTE ---
Subjective Subjective Patient was seen this morning for follow up on right foot/ankle. He is able to wiggle his toes. He is resting in bed. He is talkative. He is afebrile. He is awaiting breakfast. Objective Data Objective Data Vital Signs: Vital Signs Temp Pulse Resp BP Pulse Ox O2 Del Method 98.3 F 71 18 128/74 H 96 Room Air 01/22/22 04:55 01/22/22 04:55 01/22/22 04:55 01/22/22 04:55 01/22/22 04:55 01/22/22 04:55 Oxygen Delivery Method Room Air Weight: 74.571 kg Body Mass Index (BMI) 24.3 Intake & Output: Intake and Output for Last 24 Hours 01/20/22 01/21/22 01/22/22 23:59 23:59 23:59 Intake Total 1173 / 1173 50 / 50 Output Total 1350 / 1350 Balance 1173 / 1173 -1300 / -1300 Lab / Micro Data Result Diagrams: 01/22/22 05:36 01/22/22 05:36 Labs: Laboratory Results - last 24 hr 01/21/22 08:40: WBC 6.3, RBC 3.57 L, Hgb 11.9 L, Hct 36.2 L, MCV 101.4 H, MCH 33.3 H, MCHC 32.9, RDW Std Deviation 52.1 H, RDW Coeff of Ricki 14.1, Plt Count 223, MPV 10.0, Immature Gran % (Auto) 0.500, Neut % (Auto) 66.1, Lymph % (Auto) 18.1 L, Levy % (Auto) 11.0 H, Eos % (Auto) 3.2, Baso % (Auto) 1.1 H, Absolute Neuts (auto) 4.2, Absolute Lymphs (auto) 1.14, Nucleated RBC % 0 01/21/22 08:40: Sodium 139, Potassium 4.2, Chloride 106, Carbon Dioxide 27.0, Anion Gap 6, BUN 19 H, Creatinine 1.03, Estim Creat Clear Calc 58.15, Est GFR (MDRD) Af Amer 89, Est GFR (MDRD) Non-Af 74, BUN/Creatinine Ratio 18.4, Glucose 97, Calcium 9.2, Total Bilirubin 0.60, AST 19, ALT 15 L, Alkaline Phosphatase 61, Total Protein 7.0, Albumin 3.4, Globulin 3.6, Albumin/Globulin Ratio 0.9 01/22/22 05:36: WBC 10.1, RBC 3.19 L, Hgb 10.6 L, Hct 31.6 L, MCV 99.1 H, MCH 33.2 H, MCHC 33.5, RDW Std Deviation 49.9 H, RDW Coeff of Ricki 13.8, Plt Count 215, MPV 10.0, Immature Gran % (Auto) 0.500, Neut % (Auto) 71.0 H, Lymph % (Auto) 14.6 L, Levy % (Auto) 13.5 H, Eos % (Auto) 0.2, Baso % (Auto) 0.2, Absolute Neuts (auto) 7.2, Absolute Lymphs (auto) 1.48, Nucleated RBC % 0 01/22/22 05:36: Sodium 137, Potassium 4.0, Chloride 104, Carbon Dioxide 26.0, Anion Gap 7, BUN 16, Creatinine 1.05, Estim Creat Clear Calc 57.05, Est GFR (MDRD) Af Amer 88, Est GFR (MDRD) Non-Af 72, BUN/Creatinine Ratio 15.2, Glucose 113 H, Calcium 8.7, Total Bilirubin 0.80, AST 15, ALT 13 L, Alkaline Phosphatase 52, Total Protein 6.3 L, Albumin 2.9 L, Globulin 3.4, Albumin/Globulin Ratio 0.9 Radiography Diagnostic Testing: Radiology Impression Ankle X-Ray 01/21/22 08:40 IMPRESSION: Fluoroscopic assistance images were obtained. Dictation for documentation purposes only. Electronically Signed: Bart Martin MD at 16:31 EDT , Ankle X-Ray 01/21/22 13:18 IMPRESSION: Diffuse soft tissue swelling overlying the ankle. This is likely related to recent surgery. Electronically Signed: Bart Martin MD at 16:34 EDT , Physical Exam Narrative s/p right hindfoot/ankle surgery without complication - dressing/splint is clean, dry, and intact with no strikethrough on outer layer, bleeding controlled, CFT < 2 seconds to all toes with normal temperature. Clinically right foot/ankle in good alignment in all planes, post op alignment maintained to right hindfoot/ankle. Const alert, oriented x3 and no apparent distress Assessment & Plan Assessment/Plan (1) Arthritis of ankle, right: (2) Acquired varus deformity of right ankle: (3) Pain in right ankle and joints of right foot: PLAN: Plan s/p right tibiotalocalcaneal arthrodesis on 01/21/2022 - patient admitted for post operative pain management and nursing facility placement. Foot/ankle doing well at this time. No weightbearing right foot. Keep right foot elevated with heel offloaded. Keep dressing/splint right foot/ankle/leg clean, dry and intact. Pain management: Dilaudid, Tylenol, and Oxycodone. DVT Prophylaxis: Lovenox 40mg subcutaneous daily. Hospitalist Service consult for patient's chronic medical problems - appreciate assistance - spoke with Dr. Navarro. Patient to go to nursing facility - TCU approval pending.
[2022-01-22] MEDS: Lactulose 20 GM/30 ML UDC 10 GM PO ×2 (09:02→21:56)
[2022-01-22] MEDS: Tamsulosin HCl 0.4 MG Capsule 0.8 MG PO (09:06)
[2022-01-22] MEDS: Doxycycline 100 MG CAPSULE PO ×2 (09:07→21:57)
[2022-01-22] MEDS: Furosemide 20 MG Tablet PO (09:07)
[2022-01-22] MEDS: oxyCODONE HCl Cr 10 MG Tablet 20 MG PO ×2 (09:19→21:55)
--- NOTE | 2022-01-22 10:31 | CM.ED ---
Addendum entered by Batsheva Perry 01/22/22 18:15: DR. Elmore updated this creative writer patient not going to TCU today. EDGAR called TCU and advised that patient is not going today to TCU. Reevaluate tomorrow. EDGAR called Kanika on [facility] and she was advised patient was not going to TCU today. Green sheet on chart. Plan: TCU when medically ready. Batsheva BARKSDALE Original Note: EDGAR Note EDGAR was contacted by Ebony ARCHER that MD would like patient to come to TCU today. EDGAR called Riri and reviewed case with Riri and she indicated patient was fine for admission. EDGAR will call TCU and also [facility] and advise of the admission approval for patient to TCU. EDGAR called Kirit at TCU and Nidia Burch RN on [facility] and updated them that patient could go to TCU today. No further SW needs at this time. Batsheva BARKSDALE
--- NOTE | 2022-01-22 15:03 | PN.HOSP_ITS ---
Subjective Subjective Patient was seen and examined today, he still complains of pain and stiffness in his hands, patient was started on time-released oxycodone yesterday. He seems to be tolerating it well and he has no sedation noted. Objective Data Objective Data Vital Signs: Vital Signs Temp Pulse Resp BP Pulse Ox O2 Del Method 98.4 F 75 14 132/69 H 98 Room Air 01/22/22 11:53 01/22/22 11:53 01/22/22 11:53 01/22/22 11:53 01/22/22 11:53 01/22/22 11:53 Oxygen Delivery Method Room Air Weight: 74.571 kg Body Mass Index (BMI) 24.3 Intake & Output: Intake and Output for Last 24 Hours 01/20/22 01/21/22 01/22/22 23:59 23:59 23:59 Intake Total 1173 / 1173 588.5 / 588.5 Output Total 1350 / 1350 Balance 1173 / 1173 -761.5 / -761.5 Lab / Micro Data Result Diagrams: 01/22/22 05:36 01/22/22 05:36 Labs: Laboratory Results - last 24 hr 01/22/22 05:36: WBC 10.1, RBC 3.19 L, Hgb 10.6 L, Hct 31.6 L, MCV 99.1 H, MCH 33.2 H, MCHC 33.5, RDW Std Deviation 49.9 H, RDW Coeff of Ricki 13.8, Plt Count 21 5, MPV 10.0, Immature Gran % (Auto) 0.500, Neut % (Auto) 71.0 H, Lymph % (Auto) 14.6 L, Forrest % (Auto) 13.5 H, Eos % (Auto) 0.2, Baso % (Auto) 0.2, Absolute Neuts (auto) 7.2, Absolute Lymphs (auto) 1.48, Nucleated RBC % 0 01/22/22 05:36: Sodium 137, Potassium 4.0, Chloride 104, Carbon Dioxide 26.0, Anion Gap 7, BUN 16, Creatinine 1.05, Estim Creat Clear Calc 57.05, Est GFR (MDRD) Af Amer 88, Est GFR (MDRD) Non-Af 72, BUN/Creatinine Ratio 15.2, Glucose 113 H, Calcium 8.7, Total Bilirubin 0.80, AST 15, ALT 13 L, Alkaline Phosphatase 52, Total Protein 6.3 L, Albumin 2.9 L, Globulin 3.4, Albumin/Globulin Ratio 0.9 Radiography Diagnostic Testing: Radiology Impression Ankle X-Ray 01/21/22 08:40 IMPRESSION: Fluoroscopic assistance images were obtained. Dictation for documentation purposes only. Electronically Signed: Bart Martin MD at 16:31 EDT , Ankle X-Ray 01/21/22 13:18 IMPRESSION: Diffuse soft tissue swelling overlying the ankle. This is likely related to recent surgery. Electronically Signed: Bart Martin MD at 16:34 EDT , Physical Exam Narrative alert, oriented x3 and no apparent distress General Appearance: cooperative, well kempt and well developed Orientation / Consciousness: awake, oriented to person, oriented to place and oriented to time HEENT normocephalic and moist oral mucous membranes HEENT Narrative: Patient has a healing incisional area over the left outer ear Head and Scalp: normocephalic Eyes PERRL, EOMs intact bilaterally and conjunctivae normal Neck supple, no JVD, thyroid normal and no carotid bruits General: trachea midline Resp normal respiratory effort, no retractions, no use of accessory muscles and clear to auscultation bilaterally Auscultation: Negative for rales, rhonchi or wheezes Cardio regular rate, regular rhythm, S1 normal heart sound, S2 normal heart sound, no murmurs, no rub and no gallops GI normal to inspection, nondistended, normoactive bowel sounds, soft to palpation, non-tender and non-distended Extremity Extremity Narrative: Patient has severe deformities of the interphalangeal joints of his hands.? He has limited range of motion in his fingers, patient's right lower leg is wrapped with surgical dressing at this time and was not examined. Neuro oriented x3, CN's II-XII intact bilaterally, no focal motor deficits and no sensory deficits noted Sensorium / Orientation: awake and alert Speech: speech normal Psych affect normal Assessment & Plan Assessment/Plan (1) Acquired varus deformity of right ankle: (2) Arthritis of ankle, right: PLAN: Plan 1. Severe psoriatic arthritis-patient is currently not going to be receiving methotrexate per direction of his gas leak inspector due to his right ankle surgery. Patient's time-released oxycodone may need to be adjusted. #2 status post fusion right ankle-patient will be seen by PT and OT, he states he would like to go for short-term senior care at [facility], patient is still receiving IV Ancef at this time, I talked at length with podiatry about his care. #3 chronic anxiety-patient takes Ativan, I have ordered this every 6 hours as needed anxiety #4 BPH-patient states he has a history of prostate cancer but then states that he was never treated for the prostate cancer, I think it is likely that he has BPH, he states he has trouble urinating at times and has urinary hesitancy, I have elected to increase his Flomax 2.8 mg daily #5 Daily alcohol ingestion-according to podiatry, the patient's significant other states that the patient drinks approximately 2 cases of beer a week, I did not discuss this with the patient, again the patient will be placed on Ativan every 6 hours as needed, if the patient exhibits any alcohol withdrawal symptoms he may need to be placed on phenobarbital and CIWA scores with coverage with Ativan. #6 recent removal of malignant skin lesion left ear-patient is on doxycycline due to his recent dermatological surgery, he will remain on this for another 3 days. Charges/Coding Visit Charges Inpatient E&M: 09698 Subs Hosp L2
--- NOTE | 2022-01-22 18:21 | TREXTCAR_ITS ---
Diet Diet Order/Speech Therapy: 01/21/22 13:20 Diet: Regular - General Routine Orders/Code Status Code Status: Full Code Wound(s) RIGHT ANKLE: Wound Type: Surgical Incision RIGHT FOREARM: Wound Type: Abrasion Left Ear: Wound Type: Stitches- Surgical incisions Therapies Weight Bearing: Non weight bearing (right foot) Physical Therapy: Eval and Treat Occupational Therapy: Eval and Treat Problem/Diagnosis (1) Acquired varus deformity of right ankle: Status: Chronic Code(s): M21.171 - Varus deformity, not elsewhere classified, right ankle (2) Arthritis of ankle, right: Status: Chronic Code(s): M19.071 - Primary osteoarthritis, right ankle and foot (3) Psoriatic arthritis: Status: Chronic Code(s): L40.50 - Arthropathic psoriasis, unspecified (4) Anxiety: Status: Chronic Code(s): F41.9 - Anxiety disorder, unspecified (5) BPH (benign prostatic hyperplasia): Status: Chronic Code(s): N40.0 - Benign prostatic hyperplasia without lower urinary tract symptoms (6) Cancer of skin of left ear: Status: Acute Code(s): C44.209 - Unspecified malignant neoplasm of skin of left ear and external auricular canal Comment: removed 12/2021 Plan 1. Severe psoriatic arthritis-patient is currently not going to be receiving methotrexate per direction of his biofuels product development manager due to his right ankle surgery. Patient's time-released oxycodone may need to be adjusted. #2 status post fusion right ankle-patient will be seen by PT and OT, he states he would like to go for short-term long term at [facility], patient is still receiving IV Ancef at this time, I talked at length with podiatry about his care. #3 chronic anxiety-patient takes Ativan, I have ordered this every 6 hours as needed anxiety #4 BPH-patient states he has a history of prostate cancer but then states that he was never treated for the prostate cancer, I think it is likely that he has BPH, he states he has trouble urinating at times and has urinary hesitancy, I have elected to increase his Flomax to .8 mg daily #5 Daily alcohol ingestion-according to podiatry, the patient's significant other states that the patient drinks approximately 2 cases of beer a week, I did not discuss this with the patient, again the patient will be placed on Ativan every 6 hours as needed, if the patient exhibits any alcohol withdrawal symptoms he may need to be placed on phenobarbital and CIWA scores with coverage with Ativan. #6 recent removal of malignant skin lesion left ear-patient is on doxycycline due to his recent dermatological surgery, he will remain on this for another 3 days. Allergies/Procedures Done in Hospital Allergies No Known Allergies Allergy (Verified 01/21/22 08:48) Procedures: - (Debridement right ankle joint, tibiotalocalcaneal arthrodesis right-01/21/2022) Type of Care/Length of Stay Estimated LOS: Convalescent Care Less Than 30 days Type of Care Needed: Skilled Rehab Potential: Good Prognosis: Good Additional Orders/Day of Discharge H&P will serve as current which was dated: 12/28/21 Day of Discharge: 01/23/22 Discharge Plan Admission Admit Date/Time: 01/21/22 13:17 Primary Reason for Your Visit: Right ankle arthrodesis Attending Provider: Aram Vidal Primary Care Provider: Setve Spears Consulting Providers: Vadim Navarro Discharge Orders/Prescriptions Prescriptions: New acetaminophen 500 mg Tablet 500 mg PO Q4H PRN PRN (Reason: Pain Score 1-10) Qty: 0 0RF tamsulosin 0.4 mg Capsule 0.8 mg PO DAILY@0830 Qty: 0 0RF furosemide 20 mg Tablet 20 mg PO DAILY Qty: 0 0RF doxycycline monohydrate 100 mg Capsule 100 mg PO BID Qty: 0 0RF Rx Instructions: take for 5 days, then discontinue on 01/28/22 lorazepam 1 mg Tablet 1 mg PO Q6H PRN PRN (Reason: Anxiety) Qty: 6 0RF oxycodone 5 mg Tablet 5 mg PO Q4H PRN PRN (Reason: Pain Score 6-10) 5 Days Qty: 10 0RF enoxaparin 40 mg/0.4 mL Syringe 40 mg subcut DAILY@0600 Qty: 0 0RF lactulose 20 gram/30 mL Solution 10 g PO BID Qty: 0 0RF oxycodone [OxyContin] 10 mg Tablet,Oral Only,Ext.Rel.12 Hr 20 mg PO BID 5 Days Qty: 20 0RF white petrolatum Ointment In Packet 1 applic topical BID Qty: 720 0RF Protocol: *Topical Application Instructions APPLICATION INSTRUCTIONS: Apply to Left Ear Incision/stitches as needed for dryness- Must stay moist. Apply every time dry. Rx Instructions: apply to surgical site on left outer ear bid tizanidine 2 mg Tablet 4 mg PO Q8H PRN PRN (Reason: Muscle Spasm) Qty: 0 0RF Discontinued folic acid 1 MG tablet 2 mg PO DAILY tizanidine 4 mg tablet 4 mg PO PRN PRN (Reason: MUSCLE SPASMS) Label Comments: TAKE 2 TABLETS BY MOUTH EVERY NIGHT AT BEDTIME AND 1/2 (ONE-HALF) TWICE DAILY methotrexate sodium 25 mg/mL solution 22.5 mg IM QWEEK Label Comments: INJECT 0.8ML SUBCUTANEOUSLY ONCE A WEEK oxycodone-acetaminophen 5-325 mg tablet 1 tab PO PRN PRN (Reason: Pain) tamsulosin 0.4 mg capsule 0.4 mg PO DAILY Label Comments: TAKE 1 CAPSULE BY MOUTH NIGHTLY furosemide 20 mg tablet 20 mg PO DAILY Label Comments: TAKE 1 TABLET BY MOUTH IN THE MORNING lorazepam 1 mg tablet 1 mg PO PRN PRN (Reason: Anxiety) Label Comments: TAKE 1 TABLET BY MOUTH TWICE DAILY Referrals / Follow Up: Steve Spears MD [Primary Care Provider] - Aram Vidal DPM [Med Staff - Active Staff] - See Referral Note (as directed) Disposition Disposition (needs filled in before D/C Order can be placed): [facility]
--- NOTE | 2022-01-22 22:41 | NURSING ---
LATE ENTRY - 2014 - PT TEMP 101.[address] PITTMAN PAGED. 2100 - CHARGE NURSE SPOKE TO DR PITTMAN REGARDING PT TEMP. MD ORDERED TO RECHECK TEMP IN ONE HOUR & NOTIFY HIM. 0 - PT TEMP NOW 99.5. CREATIVE PRODUCER MADE MD AWARE. NO NEW ORDERS @ THIS TIME. WILL MONITOR.
[2022-01-23 02:00] VITALS: BP 172/95; PULSE 89; RESP 18; TEMP 37.6; O2SAT 97
[2022-01-23 04:00] VITALS: BP 172/95; PULSE 89; RESP 18; TEMP 37.6; O2SAT 97
[2022-01-23] MEDS: Enoxaparin 40 MG/0.4 ML Syringe SC (06:37)
[2022-01-23 08:00] VITALS: BP 154/78; PULSE 81; RESP 12; TEMP 37.4; O2SAT 95
[2022-01-23] MEDS: Tamsulosin HCl 0.4 MG Capsule 0.8 MG PO (08:48)
[2022-01-23] MEDS: Doxycycline 100 MG CAPSULE PO (09:54)
[2022-01-23] MEDS: Furosemide 20 MG Tablet PO (09:54)
[2022-01-23] MEDS: Lactulose 20 GM/30 ML UDC 10 GM PO (09:54)
[2022-01-23] MEDS: oxyCODONE HCl Cr 10 MG Tablet 20 MG PO (09:55)
[2022-01-23 10:00] VITALS: BP 154/78; PULSE 81; RESP 12; TEMP 37.4; O2SAT 95
--- NOTE | 2022-01-23 11:59 | PN_ITS ---
Subjective Subjective Patient was seen this morning for follow up on right foot/ankle - he relates there is some pain to the heel. He has no other complaints. Objective Data Objective Data Vital Signs: Vital Signs Temp Pulse Resp BP Pulse Ox O2 Del Method 99.4 F H 81 12 154/78 H 95 Room Air 01/23/22 08:00 01/23/22 08:00 01/23/22 08:00 01/23/22 08:00 01/23/22 08:00 01/23/22 08:51 Oxygen Delivery Method Room Air Weight: 74.571 kg Body Mass Index (BMI) 24.3 Intake & Output: Intake and Output for Last 24 Hours 01/21/22 01/22/22 01/23/22 23:59 23:59 23:59 Intake Total 1173 / 1173 938.5 / 1238.5 449.5 / 449.5 Output Total 1350 / 2425 1800 / 1800 Balance 1173 / 1173 -411.5 / -1186.5 -1350.5 / -1350.5 Lab / Micro Data Result Diagrams: 01/22/22 05:36 01/22/22 05:36 Physical Exam Narrative s/p right hindfoot/ankle surgery without complication - dressing/splint is clean, dry, and intact with no strikethrough on outer layer, bleeding controlled, incision site well coapted, sutures intact, no dehiscence, no necrosis, tissues are healthy and viable, no evidence of infection or complication, CFT < 2 seconds to all toes with normal temperature. Clinically right foot/ankle plantigrade and in good alignment in all planes, post op al ignment maintained to right hindfoot/ankle. Const alert, oriented x3 and no apparent distress Assessment & Plan Assessment/Plan (1) Arthritis of ankle, right: (2) Acquired varus deformity of right ankle: (3) Pain in right ankle and joints of right foot: PLAN: Plan s/p right tibiotalocalcaneal arthrodesis on 01/21/2022 - patient admitted for post operative pain management and nursing facility placement. Foot/ankle doing well at this time. No weightbearing right foot. Keep right foot elevated with heel offloaded. Bandage changed - no evidence of infection and site healing well. Painted incision site with betadine soln, applied gauze, kerlix and harsha dressing with well padded posterior splint. Keep dressing/splint right foot/ankle/leg clean, dry and intact. Pain management: Dilaudid, Tylenol, and Oxycodone. DVT Prophylaxis: Lovenox 40mg subcutaneous daily. Hospitalist Service consult for patient's chronic medical problems - appreciate assistance - spoke with Dr. Navarro. Patient to go to nursing facility - TCU.
[2022-01-23 13:40] VITALS: BP 134/68; PULSE 76; RESP 18; TEMP 37.3; O2SAT 96
--- NOTE | 2022-01-23 14:57 | NURSING ---
report given to tcjennifer- pt will go to room 16
[2022-01-23] MEDS: LORazepam 1 MG Tablet PO (15:02)
--- NOTE | 2022-01-23 15:25 | PCM.PN.HOSP ---
Subjective Subjective Patient was seen and examined today, he was sitting up in a chair and did not appear to be in any distress, patient states he has very little discomfort from his right ankle surgery. Objective Data Objective Data Vital Signs: Vital Signs Temp Pulse Resp BP Pulse Ox O2 Del Method 99.1 F 76 18 134/68 H 96 Room Air 01/23/22 13:40 01/23/22 13:40 01/23/22 13:40 01/23/22 13:40 01/23/22 13:40 01/23/22 13:40 Oxygen Delivery Method Room Air Weight: 74.571 kg Body Mass Index (BMI) 24.3 Intake & Output: Intake and Output for Last 24 Hours 01/21/22 01/22/22 01/23/22 23:59 23:59 23:59 Intake Total 1173 / 1173 938.5 / 1238.5 849.5 / 849.5 Output Total 1350 / 2425 2150 / 2150 Balance 1173 / 1173 -411.5 / -1186.5 -1300.5 / -1300.5 Lab / Micro Data Result Diagrams: 01/22/22 05:36 01/22/22 05:36 Physical Exam Narrative alert, oriented x3 and no apparent distress General Appearance: cooperative, well kempt and well developed Orientation / Consciousness: awake, oriented to person, oriented to place and oriented to time HEENT normocephalic and moist oral mucous membranes HEENT Narrative: Patient has a healing incisional area over the left outer ear Head and Scalp: normocephalic Eyes PERRL, EOMs intact bilaterally and conjunctivae normal Neck supple, no JVD, thyroid normal and no carotid bruits General: trachea midline Resp normal respiratory effort, no retractions, no use of accessory muscles and clear to auscultation bilaterally Auscultation: Negative for rales, rhonchi or wheezes Cardio regular rate, regular rhythm, S1 normal heart sound, S2 normal heart sound, no murmurs, no rub and no gallops GI normal to inspection, nondistended, normoactive bowel sounds, soft to palpation, non-tender and non-distended Extremity Extremity Narrative: Patient has severe deformities of the interphalangeal joints of his hands.? He has limited range of motion in his fingers, patient's right lower leg is wrapped with surgical dressing at this time and was not examined. 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 Severe psoriatic arthritis-patient is currently not going to be receiving methotrexate per direction of his young adult librarian due to his right ankle surgery. Patient's time-released oxycodone may need to be adjusted. #2 status post fusion right ankle-patient appears stable for transfer to TCU for further rehab services. #3 chronic anxiety-patient takes Ativan, I have ordered this every 6 hours as needed anxiety #4 BPH-patient states he has a history of prostate cancer but then states that he was never treated for the prostate cancer, I think it is likely that he has BPH, he states he has trouble urinating at times and has urinary hesitancy, I have elected to increase his Flomax to .8 mg daily #5 Daily alcohol ingestion-according to podiatry, the patient's significant other states that the patient drinks approximately 2 cases of beer a week, I did not discuss this with the patient, again the patient will be placed on Ativan every 6 hours as needed, if the patient exhibits any alcohol withdrawal symptoms he may need to be placed on phenobarbital and CIWA scores with coverage with Ativan. #6 recent removal of malignant skin lesion left ear-patient is on doxycycline due to his recent dermatological surgery, he will remain on this for another 3 days. Patient appears stable for transfer to TCU for short-term rehab services, I filled out the patient's paperwork and wrote out prescriptions for the patient to be transferred to TCU. Charges/Coding Visit Charges Inpatient E&M: 56989 Subs Hosp L3
== END 2022-01-23 16:25 | disposition skilled nursing facility (03) | DRG 494 ==
LOC: SDC 13:43 → MS3 13:43
PROVIDERS: Admitting Provider Podiatrist; PCP Family Medicine; Referring Provider Podiatrist; Visit Provider Podiatrist
PROC: 0SGF0KZ Fusion of Right Ankle Joint with Nonautologous Tissue Substitute, Open Approach (ICD-10-PCS; CPT 28725; principal; 2022-01-21 09:25)
DX: M06.871 Other specified rheumatoid arthritis, right ankle and foot (principal); C44.209 Unspecified malignant neoplasm of skin of left ear and external auricular canal; L40.50 Arthropathic psoriasis, unspecified; F41.9 Anxiety disorder, unspecified; M21.171 Varus deformity, not elsewhere classified, right ankle; N40.0 Benign prostatic hyperplasia without lower urinary tract symptoms; Z79.899 Other long term (current) drug therapy
CPT/HCPCS: 36415; 73600; 73610; 76000; 80053; 85025; 87811; 88304; 88311; 97110; 97116; 97163; 97166; 97530; 97535; 99251; C1713; J7050; J7120; A4216; G0463; J2405

== ENCOUNTER 2022-01-23 16:38 | Inpatient (IN) | payer MEDICARE, OTHER, SELFPAY ==
[2022-01-23 16:55] VITALS: BP 139/70; PULSE 73; PULSE 79; RESP 16; RESP 18; TEMP 37.9; O2SAT 96; O2SAT 97; BMI 23.3
--- NOTE | 2022-01-23 19:27 | HP.PCM_ITS ---
HPI - General General Date of Admission: 01/23/22 Date of Service: 01/24/22 Chief Complaint: Here for rehab. HPI Narrative BRIDGETTE WILCOX, is a 81 Male who presents with followin01/21/2022 Dr. Vidal performed tibiotalocalcaneal arthrodesis, right. 01/21/2022 Oxycodone for pain. PT/OT for TCU. Tamsulosin increased to 0.8mg daily for BPH/urinary retention. Patient drinks 48 beers per week, or 6.86 beers per day, he is alcoholic. Ativan q6 for anxiety/benzodiazepine dependence/alcohol withdrawal. 01/22/2022 Pain, stiffness in hands. Hold Methotrexate per rheumatology. Doxycycline for removal of left ear malignant lesion. 01/23/2022 Very little pain from right ankle surgery. 01/23/2022 Admit to TCU with debility, here for rehabilitation, strengthening, prior to discharge home alone. [facility] Medical History Alcohol use Ambulates with cane Arthritis History of edema Hx of fracture of wrist Non-smoker Psoriatic arthritis Wears glasses Wears partial dentures Home Medications acetaminophen 500 mg tablet 500 mg PO Q4H PRN PRN Pain Score 1-10 #0 tabs 01/22/22 [Rx Last Taken Unknown] lorazepam 1 mg tablet 1 mg PO Q6H PRN PRN Anxiety #6 tabs 01/22/22 [Rx Last Taken Unknown] oxycodone 5 mg tablet 5 mg PO Q4H PRN PRN Pain Score 6-10 5 days #10 tabs 01/22/22 [Rx Last Taken Unknown] tizanidine 2 mg tablet 4 mg PO Q8H PRN PRN Muscle Spasm #0 tabs 01/22/22 [Rx Last Taken Unknown] doxycycline monohydrate 100 mg capsule 100 mg PO BID Antibiotic 01/23/22 [History Last Taken Unknown] enoxaparin 40 mg/0.4 mL subcutaneous syringe 40 mg subcut DAILY@0600 Anticoagulant 01/23/22 [History Last Taken Unknown] furosemide 20 mg tablet 20 mg PO DAILY Diuretic 01/23/22 [History Last Taken Unknown] lactulose 20 gram/30 mL oral solution 10 g PO BID Check with primary doctor 01/23/22 [History Last Taken Unknown] oxycodone 10 mg tablet,crush resistant,extended release 12 hr (OxyContin) 20 mg PO BID Pain 01/23/22 [History Last Taken Unknown] tamsulosin 0.4 mg capsule 0.8 mg PO DAILY@0830 Retention 01/23/22 [History Last Taken Unknown] white petrolatum 1 applic topical BID Dryness 01/23/22 [History Last Taken Unknown] Allergy/AdvReac Type Severity Reaction Status Date / Time No Known Allergies Allergy Verified 01/21/22 08:48 Family History (Updated 01/23/22 @ 19:[address] Aristides Ding MD) Father CAD (coronary artery disease) Mother CAD (coronary artery disease) Surgical History Hx of ankle fusion Hx of hernia repair Hx of shoulder surgery Hx of total knee replacement Social History (Updated 01/23/22 @ 19:[address] Aristides Ding MD) household members: none Smoking Status: Never smoker alcohol intake: current alcohol intake frequency: 3 or more drinks per day Alcohol type: beer details: 48 beers per week. substance use type: does not use ROS Constitutional Constitutional: Denies chills, fever(s) or weight gain ENT HEENT: Denies headache(s), nasal congestion or nasal discharge Cardiovascular Cardiovascular: Denies chest pain or palpitations Respiratory/Chest Respiratory/Chest: Denies cough, excessive phlegm production or shortness of breath with exertion Gastrointestinal Gastrointestinal: Denies abdominal pain, nausea or vomiting Genitourinary Genitourinary: Denies dysuria Musculoskeletal Musculoskeletal: Denies joint pain or joint swelling Integumentary Integumentary: Denies rash or wounds Neurologic Neurologic: Denies focal weakness, numbness or tingling Psychiatric Psychiatric: Denies anxiety, auditory hallucinations, depression, homicidal ideation or suicidal ideation Vital Signs Vital Signs Vital Signs: Weight Weight: 73.89 kg Body Mass Index (BMI) 23.3 Physical Exam Const alert General Appearance: cooperative HEENT normocephalic Eyes PERRL and EOMs intact bilaterally Neck supple, no JVD and no carotid bruits Resp normal respiratory effort, normal air movement and clear to auscultation bilaterally Cardio regular rate and regular rhythm GI normal to inspection, nondistended, normoactive bowel sounds, non-tender and non-distended Extremity normal capillary refill Extremity Narrative: Right lower extremity dressed. General Extremity: Negative for edema Skin no rashes or lesions noted General Skin Exam: no breakdown Psych affect normal Appearance: appropriate Results Lab / Micro Data Result Diagrams: 01/24/22 05:17 01/24/22 05:17 Assessment & Plan Assessment/Plan (1) Debility: (2) Arthritis of ankle, right: (3) Psoriatic arthritis: (4) Anxiety: (5) BPH (benign prostatic hyperplasia): (6) Benzodiazepine dependence: (7) Alcohol abuse: PLAN: Plan 81 year old male with below past medical history hospitalized for right ankle fusion 01/21/[address] Vidal, complicated by urinary retention, alcohol abuse, admitted to TCU with debility, here for rehabilitation, strengthening, prior to discharge home alone. * Debility - PT/OT. * Pain - Tylenol 1000mg q6h prn pain (1-3), Oxycontin 20mg bid, Oxycodone 5mg q4h prn pain (6-10). * Bowel - Lactulose 10gm bid. * Adult immunization - Administer pneumonia vaccine, covid19 vaccine, flu vaccine as appropriate. * DVT prophylaxis - Lovenox 40mg sc daily. 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 * Edema - Furosemide 20mg bid. * Anxiety/benzodiazepine dependence/alcohol withdrawal - Lorazepam 1mg q6h prn, stable chronic detention use, GDR not recommended. * Skin irritation - Eucerin topical bid. * BPH/urinary retention - Tamsulosin 0.8mg daily. * Muscle spasm - Tizanidine 4mg q8h prn.
[2022-01-23] MEDS: Lactulose 20 GM/30 ML UDC 10 GM PO (19:46)
[2022-01-23] MEDS: oxyCODONE HCl Cr 10 MG Tablet 20 MG PO (19:47)
[2022-01-23] MEDS: Doxycycline 100 MG CAPSULE PO (19:47)
[2022-01-23] MEDS: Petrolatum,White 5 GM PACKET 1 APPLIC TOPICAL (19:48)
[2022-01-23] MEDS: LORazepam 1 MG Tablet PO (19:52)
[2022-01-24 05:26] LABS: Absolute Lymphocyte Count 1.14 X10^3/uL (0.83-4.51); Absolute Neutrophil Count 5.2 X10^3/uL (2.0-7.7); Basophil# 0.04 X10^3/uL; Basophil% 0.5 % (0-1); Eosinophil# 0.06 X10^3/uL; Eosinophils% 0.8 % (0-5); Lymphocyte # 1.14 X10^3/ul (0.83-4.51); Mean Corp Hgb Conc 34.5 g/dL (32-36); Mean Corpuscular Hgb 34.5 pg (27.0-32.0); Mean Platelet Vol. 9.6 fl (6.2-12.0); Monocyte# 1.16 X10^3/uL; Monocyte% 15.3 % (0-10); NRBC Flagged by Analyzer 0 % (0-5); Neutrophil # 5.18 X10^3/uL (2.7-7.7); Neutrophil % 68.1 % (47-70); Platelet Count 183 K/mm3 (150-450); RBC Distribution Width CV 13.7 % (11.6-14.6); RBC Distribution Width SD 50.4 fl (35.1-43.9); White Blood Count 7.6 K/mm3 (4.4-11.0)
[2022-01-24 06:23] LABS: Anion Gap 8 (5-15); BUN 17 mg/dL (7-18); BUN/Creat Ratio 16.3 RATIO (10-20); Calcium,Total 8.6 mg/dL (8.5-10.1); Chloride 98 mmol/L (98-107); Creatinine, Serum 1.04 mg/dL (0.70-1.30); EST Glomerular Filtration Rate 73 mL/min (>60); Est Glom Filt Rate - Afr Amer 88 mL/min (>60); Estimated Creatinine Clearance 59.47 ml/min; Glucose 91 mg/dL (74-106); Potassium 3.7 mmol/L (3.5-5.1); Sodium Level 133 mmol/L (136-145)
[2022-01-24] MEDS: Lactulose 20 GM/30 ML UDC 10 GM PO (06:59)
[2022-01-24] MEDS: oxyCODONE HCl Cr 10 MG Tablet 20 MG PO ×2 (06:59→18:19)
[2022-01-24] MEDS: Furosemide 20 MG Tablet PO (06:59)
[2022-01-24] MEDS: Doxycycline 100 MG CAPSULE PO ×2 (07:00→18:19)
[2022-01-24] MEDS: Enoxaparin 40 MG/0.4 ML Syringe SC (07:00)
[2022-01-24] MEDS: Petrolatum,White 5 GM PACKET 1 APPLIC TOPICAL ×2 (07:10→18:21)
[2022-01-24] MEDS: Tamsulosin HCl 0.4 MG Capsule 0.8 MG PO (08:26)
[2022-01-24] MEDS: Acetaminophen 500 MG Tablet 1000 MG PO ×2 (08:32→20:43)
[2022-01-24] MEDS: Polyethylene Glycol 3350 17 GM PACKET PO (08:34)
--- NOTE | 2022-01-24 08:49 | PCA ---
Addendum entered by Norma Rodriguez 01/24/22 09:24: medicated with tylenol 5/10 pain in big toe, no bruising, open wounds noted. dressing D/I to foot. call light in reach. Original Note: Patient bumped left great toe on bedside table while this PLASTIC INJECTION MOLD MAKER and another where pulling patient up in bed for breakfast.
[2022-01-24] MEDS: MENTHOL 226.8 GM JAR 1 APPLIC TOPICAL (09:59)
[2022-01-24] MEDS: FLU VACC QS2022-23(6MOS UP)/PF 60 MCG/0.5 ML SYRINGE IM (10:07)
[2022-01-24] MEDS: Tuberculin,Purif.prot.deriv. 50 TU/ML Vial 0.1 ML ID (10:08)
--- NOTE | 2022-01-24 12:18 | NURSING ---
dr gong returned call and ok for therapy to use knee walker as long as pt does not put weight to RT ankle.
[2022-01-24 14:17] VITALS: BP 125/72; PULSE 82; RESP 18; TEMP 36.5; O2SAT 100
--- NOTE | 2022-01-24 15:12 | PCM.PN.DRR ---
TCU RX Drug Regimen Review Subjective: TCU Admission. 81 YOF admitted to the hospital for right ankle fusion 01/21/[address] Vidla. Hospitalization complicated by urinary retention and alcohol abuse. Admitted to TCU with debility for strengthening and rehabilitation. Objective: Allergies No Known Allergies Allergy (Verified 01/21/22 08:48) Current Medications Generic Name Dose Route Start Last Admin Trade Name Freq PRN Reason Stop Dose Admin Acetaminophen 1,000 mg 01/23/22 19:40 01/24/22 08:32 Acetaminophen 500 Mg Tablet PO 1,000 mg Q6H PRN PRN Administration Pain Score 1-5 Betamethasone Valerate 1 applic 01/24/22 08:55 01/24/22 10:01 Betamethasone Valerate 0.1% Cream TOPICAL 1 applic BID PRN PRN Administration RASH/TOPICAL IRRITATION Doxycycline Monohydrate 100 mg 01/23/22 18:00 01/24/22 07:00 Doxycycline 100 Mg Capsule PO 01/28/22 18:01 100 mg BID RADHA Administration Enoxaparin Sodium 40 mg 01/24/22 06:00 01/24/22 07:00 Enoxaparin 40 Mg/0.4 Ml Syringe SC 40 mg DAILY RADHA Administration Furosemide 20 mg 01/24/22 06:00 01/24/22 06:59 Furosemide 20 Mg Tablet PO 20 mg DAILY RADHA Administration Lorazepam 1 mg 01/23/22 17:06 01/23/22 19:52 Lorazepam 1 Mg Tablet PO 1 mg Q6H PRN PRN Administration ANXIETY Menthol 1 applic 01/24/22 07:30 01/24/22 09:59 Menthol 226.8 Gm Jar TOPICAL 1 applic 4X/DAY PRN PRN Administration Pain Score 1-10 Oxycodone HCl 5 mg 01/23/22 17:06 Oxycodone 5 Mg Tablet PO Q4H PRN PRN Pain Score 6-10 Oxycodone HCl 20 mg 01/23/22 18:00 01/24/22 06:59 Oxycodone Hcl Cr 10 Mg Tablet PO 20 mg BID RADHA Administration Petrolatum 1 applic 01/23/22 18:00 01/24/22 07:10 Petrolatum,White 5 Gm Packet TOPICAL 1 applic BID RADHA Administration Protocol Polyethylene Glycol 17 gm 01/24/22 07:30 01/24/22 08:34 Polyethylene Glycol 3350 17 Gm Packet PO 17 gm DAILY RADHA Administration Sodium Chloride 10 - 40 ml 01/23/22 17:40 0.9% Saline Lock 10 Ml Syringe IV UD PRN SALINE FLUSH Tamsulosin HCl 0.8 mg 01/24/22 08:30 01/24/22 08:26 Tamsulosin Hcl 0.4 Mg Capsule PO 0.8 mg DAILY@0830 RADHA Administration Tizanidine HCl 4 mg 01/23/22 17:06 Tizanidine Hcl 2 Mg Tablet PO Q8H PRN PRN Muscle Spasm Tuberculin PPD 0.1 ml 01/31/22 10:00 Tuberculin,Purif.Prot.Deriv. 50 Tu/Ml Vial ID 01/31/22 10:01 X1 ONE Problem List (Last Reviewed 01/23/22 @ 19:[address] Aristides Ding MD) Alcohol abuse (Acute) Benzodiazepine dependence (Acute) Debility (Acute) BPH (benign prostatic hyperplasia) (Chronic) Anxiety (Chronic) Psoriatic arthritis (Chronic) Arthritis of ankle, right (Chronic) Vital Signs Temp Pulse Resp BP Pulse Ox O2 Del Method 97.7 F L 82 18 125/72 H 100 Room Air 01/24/22 14:17 01/24/22 14:17 01/24/22 14:17 01/24/22 14:17 01/24/22 14:17 01/24/22 14:17 Oxygen Delivery Method Room Air Weight: 73.89 kg Body Mass Index (BMI) 23.3 Sodium 133 mmol/L (136-145) L 01/24/22 05:17 Potassium 3.7 mmol/L (3.5-5.1) 01/24/22 05:17 Chloride 98 mmol/L (98-107) 01/24/22 05:17 Carbon Dioxide 27.0 mmol/L (21.0-32.0) 01/24/22 05:17 Anion Gap 8 (5-15) 01/24/22 05:17 BUN 17 mg/dL (7-18) 01/24/22 05:17 Creatinine 1.04 mg/dL (0.70-1.30) 01/24/22 05:17 Est GFR (MDRD) Af Amer 88 mL/min (>60) 01/24/22 05:17 Est GFR (MDRD) Non-Af 73 mL/min (>60) 01/24/22 05:17 BUN/Creatinine Ratio 16.3 RATIO (10-20) 01/24/22 05:17 Glucose 91 mg/dL (74-106) 01/24/22 05:17 Assessment/Plan: 1. Pain: acetaminophen 1000mg PO Q6H PRN pain 1-3, oxycodone 5mg PO Q4H PRN pain 6-10 and oxycodone CR 20mg PO BID. Please continue to monitor for increased pain, PRN usage, constipation and respiratory depression. Resident has not required any PRN oxycodone but did have 1 dose of acetaminophen for a pain of 5 in the foot. 2. DVT prophylaxis: enoxaparin 40mg SC daily. Please continue to monitor for S/S of bleeding/DVT, hemoglobin (last 10g/dL), platelets (last 183,000) and renal function. 3. Left ear s/p malignant lesion removal: doxycycline 100mg PO BID thru 01/28/22. Please continue to monitor for S/S of infection and diarrhea. 4. Edema: furosemide 20mg PO BID. Please continue to monitor for S/S of edema, potassium (last 3.7mmol/L), sodium (last 133mmol/L), and renal function. 5. BPH/urinary retention: tamsulosin 0.8mg PO daily. Please continue to monitor for S/S of BPH/urinary retention and BP (last 125/72). 6. Muscle spasm: tizanidine 4mg PO Q8H PRN muscle spasm. This medication is on the BEERs criteria because it may decrease urinary flow and cause urinary retention in men (which he has a history of). Resident has not required any doses so far. Please continue to monitor and consider using an alternative agent if resident needs PRN medication. Please continue to monitor for muscle spasms and PRN usage. 7. Bowel: Miralax 17gm PO daily. Please continue to monitor for constipation. Resident has not had a documented bowel movement this admission. Assessment/Plan for indications treated with psychotropic medications: 1. Anxiety/benzodiazepine dependence/alcohol withdrawal: lorazepam 1mg PO Q6H anxiety. Resident has had 1 dose of lorazepam. Please continue to monitor. This medication is on the BEERs list for dementia/delirium and falls/fractures. Please see physician note regarding GDR. Please continue to montior for falls, delirium, anxiety and PRN usage. Medical chart and medication regimen reviewed. The following medication irregularities or issues were identified: *1. Tizanidine 4mg PO Q8H PRN muscle spasm. This medication is on the BEERs criteria because it may decrease urinary flow and cause urinary retention in men (which he has a history of). Resident has not required any doses so far. Please continue to monitor and consider using an alternative agent if resident needs PRN medication. Thanks. Date of Note:: 01/24/22
--- NOTE | 2022-01-24 15:56 | CASEMGMT ---
Social Work Met with patient for initial assessment. Introduced self and role. S.O. present in room. Pt granted permission for SW to complete assessment with SO present. Verified contacts. Discussed code status and MOLST form. Pt confirms full code. MOLST completed, placed in Dr. ramirez. Educated to Medicare benefit. Encouraged to contact secondary insurance to ensure copay coverage. SO states she already called and insurance overs copays. Pts goal is to return home at OF. SO will be there to assist, but does not live with pt and still works. SO stated there are friends ready to assist pt at home as needed. SW to continue to follow for DC planning and to explore alcohol and benzo dependence further. Sloane Grace, SLITTER SCORER QUEBRACHO TANNER
[2022-01-24] MEDS: oxyCODONE 5 MG Tablet PO ×2 (16:07→20:43)
[2022-01-24] MEDS: 0.9% Saline Lock 10 ML Syringe IV (16:10)
[2022-01-24] MEDS: Oxymetazoline 0.05% 1 SPRAY SPRAY.BTL NASAL (19:19)
[2022-01-24 20:32] VITALS: PULSE 74; RESP 16; O2SAT 95
[2022-01-25] MEDS: oxyCODONE 5 MG Tablet PO ×3 (03:14→20:41)
[2022-01-25] MEDS: Acetaminophen 500 MG Tablet 1000 MG PO (03:15)
[2022-01-25] MEDS: Enoxaparin 40 MG/0.4 ML Syringe SC (05:09)
[2022-01-25] MEDS: oxyCODONE HCl Cr 10 MG Tablet 20 MG PO ×2 (05:09→19:00)
[2022-01-25] MEDS: Polyethylene Glycol 3350 17 GM PACKET PO (05:12)
[2022-01-25] MEDS: DULoxetine Hcl 60 MG Capsule PO (05:12)
[2022-01-25] MEDS: Doxycycline 100 MG CAPSULE PO ×2 (05:12→16:28)
[2022-01-25] MEDS: Furosemide 20 MG Tablet PO (05:12)
[2022-01-25] MEDS: Petrolatum,White 5 GM PACKET 1 APPLIC TOPICAL ×2 (05:13→16:33)
[2022-01-25] MEDS: Menthol/Lanolin/Calamine/Znox 113 GM Tube 1 APPLIC TOPICAL ×2 (05:15→16:29)
[2022-01-25] MEDS: Tamsulosin HCl 0.4 MG Capsule 0.8 MG PO (07:46)
[2022-01-25] MEDS: Folic Acid 1 MG Tablet PO (07:46)
--- NOTE | 2022-01-25 08:50 | NURSING ---
Addendum entered by Ebony Longoria 01/25/22 09:10: Per Dr. Ding give SSE first then get KUB. Original Note: Pt in room on BSC vomiting clear liquid and unable to eat. Dr. Ding updated N.O. for Soap Suds Enema and KUB.
--- NOTE | 2022-01-25 10:15 | RAD_ITS ---
EXAM: XR ABDOMEN, 1 VIEW CLINICAL INDICATION: Constipation TECHNIQUE: Frontal supine view of the abdomen/pelvis. This report was created using [employer] report generation technology. COMPARISON: None. FINDINGS: LOWER THORAX: No acute pathology. GASTROINTESTINAL TRACT: Unremarkable. Non-obstructive. No bowel or stomach distention. ORGANS: Unremarkable as visualized. No organomegaly. No abnormal calcifications. BONES/JOINTS: No acute pathology. SOFT TISSUES: No acute pathology. RAD/Abdomen Single View IMPRESSION: Non-obstructive bowel gas pattern. Electronically Signed: Jason Tristan MD at 16:49 EDT ,
--- NOTE | 2022-01-25 11:28 | CASEMGMT ---
Social Work IDT met with patient and SO via conference call for care plan meeting. Discussed patient's progress in PT/OT/SN. Educated to Medicare benefit. Pts goal is to return home alone at x1 CGA-min assist. SO works weekly but can assist outside work hours. SO states she will be enlisting the help from other friends as well. Pt motivated toward recovery. SW to continue to follow for DC planning. Sloane Grace, MEDICAL ADVISOR BILINGUAL MIDDLE SCHOOL TEACHER
--- NOTE | 2022-01-25 12:03 | NURSING ---
Vacuum Drum Drier Operator Note; Activity Asst complete
[2022-01-25 13:40] VITALS: BP 137/76; PULSE 68; RESP 16; TEMP 36.4; O2SAT 95
--- NOTE | 2022-01-25 15:12 | CHAPLAIN ---
Type of Pastoral Visit _x__ Initial Visit ___ Follow-up Visit ___ On-call Visit ___ General Patient Visit ___ Spiritual Assessment ___ Family Conference ___ Bereavement ___ Rapid Response ___ Code Blue ___ Other (describe below) Pastoral Care Referral From _x__ Patient ___ Family ___ Nurse ___ Physician ___ Venereal Disease Control Head ___ Windlasser ___ Other (describe below) Sacrament/Intervention _x__ Active listening ___ Anointing ___ Quaker ___ Bereavement ___ Communion ___ Vilma exploration ___ _x__ Life review ___ Prayer ___ Reconciliation ___ Sacrament of Sick _x__ Supportive presence ___ Wedding ___ Other (describe below) Pastoral Comments patient tells how this is not a good day and explains his nausea and constipation issues; pt does invite this import/export specialist for the visit and states that he is most often alone since he was several years ago; pt states that two of his three children do not talk to him and have not visited him in seven years; pt repeats this again later in conversation; pt has a SO and one daughter that is supportive; pt talks about his health issues, his work history, his desire to go home and get better again; pt is not connected to any vilma community but does welcome a prayer said on his behalf; pt invites this import/export specialist to come back anytime you can
[2022-01-25] MEDS: Senna/Docusate Sodium 1 Tablet 2 TABLET PO (16:28)
[2022-01-25] MEDS: MENTHOL 226.8 GM JAR 1 APPLIC TOPICAL (16:32)
[2022-01-25] MEDS: Oxymetazoline 0.05% 1 SPRAY SPRAY.BTL NASAL (20:02)
[2022-01-25] MEDS: LORazepam 1 MG Tablet PO (20:42)
[2022-01-26] MEDS: Menthol/Lanolin/Calamine/Znox 113 GM Tube 1 APPLIC TOPICAL ×2 (06:03→17:04)
[2022-01-26] MEDS: MENTHOL 226.8 GM JAR 1 APPLIC TOPICAL ×2 (06:03→13:40)
[2022-01-26] MEDS: Polyethylene Glycol 3350 17 GM PACKET PO (06:04)
[2022-01-26] MEDS: Enoxaparin 40 MG/0.4 ML Syringe SC (06:05)
[2022-01-26] MEDS: oxyCODONE HCl Cr 10 MG Tablet 20 MG PO ×2 (06:05→17:03)
[2022-01-26] MEDS: DULoxetine Hcl 60 MG Capsule PO (06:06)
[2022-01-26] MEDS: Furosemide 20 MG Tablet PO (06:06)
[2022-01-26] MEDS: Doxycycline 100 MG CAPSULE PO ×2 (06:06→17:03)
[2022-01-26] MEDS: Senna/Docusate Sodium 1 Tablet 2 TABLET PO ×2 (06:11→17:03)
[2022-01-26] MEDS: Petrolatum,White 5 GM PACKET 1 APPLIC TOPICAL ×2 (06:11→17:04)
[2022-01-26] MEDS: Tamsulosin HCl 0.4 MG Capsule 0.8 MG PO (07:59)
[2022-01-26] MEDS: Folic Acid 1 MG Tablet PO (07:59)
[2022-01-26 09:55] LABS: Bacteria 0 SEEN /hpf (None Seen); Mucous, Urine 0 SEEN /hpf (<or=2+); Red Blood Cells-Urine 0 SEEN /hpf (0-5); Squamous Epithelial Cells - UA 0 SEEN /hpf (0-5); White Blood Cells 0 SEEN /hpf (0-5)
[2022-01-26 09:59] LABS: Color, Urine Yellow (Yellow); Glucose, Dipstick Normal (Normal); Ketone-Dipstick Negative (Negative); Leukocyte Esterase-Dipstick Negative /ul (Negative); Nitrite-Dipstick Negative (Negative); Occult Blood-Urine Negative /ul (Negative); Protein-Dipstick 15 mg/dl (Negative); Specific Gravity, Urine 1.015 (1.002-1.030); Urine Bilirubin Dipstick Negative (Negative); Urine Clarity Clear (Clear); Urine Urobilinogen 4 mg/dl (Normal)
[2022-01-26 12:12] VITALS: BP 134/69; PULSE 71; RESP 18; TEMP 36.9; O2SAT 98
[2022-01-26] MEDS: oxyCODONE 5 MG Tablet PO (20:25)
[2022-01-27] MEDS: DULoxetine Hcl 60 MG Capsule PO (05:14)
[2022-01-27] MEDS: Doxycycline 100 MG CAPSULE PO ×2 (05:14→17:18)
[2022-01-27] MEDS: Polyethylene Glycol 3350 17 GM PACKET PO (05:14)
[2022-01-27] MEDS: Enoxaparin 40 MG/0.4 ML Syringe SC (05:14)
[2022-01-27] MEDS: Furosemide 20 MG Tablet PO (05:14)
[2022-01-27] MEDS: Senna/Docusate Sodium 1 Tablet 2 TABLET PO ×2 (05:14→17:19)
[2022-01-27] MEDS: oxyCODONE HCl Cr 10 MG Tablet 20 MG PO ×2 (05:15→17:17)
[2022-01-27] MEDS: Petrolatum,White 5 GM PACKET 1 APPLIC TOPICAL ×2 (05:19→17:18)
[2022-01-27] MEDS: Menthol/Lanolin/Calamine/Znox 113 GM Tube 1 APPLIC TOPICAL (05:21)
[2022-01-27] MEDS: LORazepam 1 MG Tablet PO ×2 (06:47→19:57)
[2022-01-27] MEDS: Acetaminophen 500 MG Tablet 1000 MG PO (08:04)
[2022-01-27] MEDS: oxyCODONE 5 MG Tablet PO (08:05)
[2022-01-27] MEDS: Folic Acid 1 MG Tablet PO (08:06)
[2022-01-27] MEDS: Tamsulosin HCl 0.4 MG Capsule 0.8 MG PO (08:06)
--- NOTE | 2022-01-27 15:26 | CHAPLAIN ---
Type of Pastoral Visit ___ Initial Visit _x__ Follow-up Visit ___ On-call Visit ___ General Patient Visit ___ Spiritual Assessment ___ Family Conference ___ Bereavement ___ Rapid Response ___ Code Blue ___ Other (describe below) Pastoral Care Referral From __x_ Patient ___ Family ___ Nurse ___ Physician ___ Vocational Counselor ___ Polishing Machine Tender ___ Other (describe below) Sacrament/Intervention _x__ Active listening ___ Anointing ___ Restorationism ___ Bereavement ___ Communion ___ Vilma exploration ___ _x__ Life review _x__ Prayer ___ Reconciliation ___ Sacrament of Sick _x__ Supportive presence ___ Wedding ___ Other (describe below) Pastoral Comments patient is welcoming and asks for assistance in filling out his meal forms for tomorrow; assisted pt with meal forms; sat with pt who talks freely about his life and his interests; pt expounds on his work history and how he cannot just sit or lie around; pt welcomes the company of someone to talk with; pt welcomes prayer and states that 'while I am not catholic or going to mu-ism, I do believe in God and try to do right; pt states that this line leader can come anytime to visit
[2022-01-27 15:58] VITALS: BP 130/71; PULSE 57; RESP 16; TEMP 36.9; O2SAT 96
[2022-01-28] MEDS: Polyethylene Glycol 3350 17 GM PACKET PO (04:47)
[2022-01-28] MEDS: Menthol/Lanolin/Calamine/Znox 113 GM Tube 1 APPLIC TOPICAL ×2 (04:50→17:14)
[2022-01-28] MEDS: Doxycycline 100 MG CAPSULE PO ×2 (04:50→17:15)
[2022-01-28] MEDS: DULoxetine Hcl 60 MG Capsule PO (04:51)
[2022-01-28] MEDS: Furosemide 20 MG Tablet PO (04:51)
[2022-01-28] MEDS: Senna/Docusate Sodium 1 Tablet 2 TABLET PO ×2 (04:51→17:16)
[2022-01-28] MEDS: Enoxaparin 40 MG/0.4 ML Syringe SC (04:51)
[2022-01-28] MEDS: oxyCODONE HCl Cr 10 MG Tablet 20 MG PO ×2 (04:59→17:15)
[2022-01-28] MEDS: Petrolatum,White 5 GM PACKET 1 APPLIC TOPICAL ×2 (07:27→17:16)
[2022-01-28] MEDS: Oxymetazoline 0.05% 1 SPRAY SPRAY.BTL NASAL ×2 (07:31→19:55)
--- NOTE | 2022-01-28 07:44 | PCM.CONS.GEN ---
Assessment & Plan Assessment/Plan (1) Arthritis of ankle, right: (2) Pain in right ankle and joints of right foot: PLAN: Plan s/p right tibiotalocalcaneal arthrodesis on 01/21/2022 - Foot/ankle doing well at this time. No weightbearing right foot. Keep right foot elevated with heel offloaded. Bandage changed - no evidence of infection and site healing well. Applied gauze, kerlix and harsha dressing with well padded posterior splint with heel offloaded. Keep dressing/splint right foot/ankle/leg clean, dry and intact. Pain management: Oxycodone, Oxycotin, and acetaminophen. DVT Prophylaxis: Lovenox 40mg subcutaneous daily. Will continue to follow weekly, sooner if needed. HPI Consult Data Date of Consult: 01/28/22 HPI Narrative Reason for Consultation: follow up right foot/ankle - post op HPI Narrative: BRIDGETTE WILCOX, is a 81 M who had right TTC arthrodesis on 01/21/22, he was seen this morning for follow up. He relates he had some pain yesterday - relates there was some burning in the heel. He relates he has been doing his best. He is resting comfortably in bed, just waking up this morning. He denies any fever, chills, nausea or vomiting. No complaints of SOB, chest pain or calf pain. He relates he has been using a knee scooter/walker. [facility] Medical History Alcohol use Ambulates with cane Arthritis History of edema Hx of fracture of wrist Non-smoker Psoriatic arthritis Wears glasses Wears partial dentures Home Medications acetaminophen 500 mg tablet 500 mg PO Q4H PRN PRN Pain Score 1-10 #0 tabs 01/22/22 [Rx Last Taken Unknown] lorazepam 1 mg tablet 1 mg PO Q6H PRN PRN Anxiety #6 tabs 01/22/22 [Rx Last Taken Unknown] oxycodone 5 mg tablet 5 mg PO Q4H PRN PRN Pain Score 6-10 5 days #10 tabs 01/22/22 [Rx Last Taken Unknown] tizanidine 2 mg tablet 4 mg PO Q8H PRN PRN Muscle Spasm #0 tabs 01/22/22 [Rx Last Taken Unknown] doxycycline monohydrate 100 mg capsule 100 mg PO BID Antibiotic 01/23/22 [History Last Taken Unknown] enoxaparin 40 mg/0.4 mL subcutaneous syringe 40 mg subcut DAILY@0600 Anticoagulant 01/23/22 [History Last Taken Unknown] furosemide 20 mg tablet 20 mg PO DAILY Diuretic 01/23/22 [History Last Taken Unknown] lactulose 20 gram/30 mL oral solution 10 g PO BID Check with primary doctor 01/23/22 [History Last Taken Unknown] oxycodone 10 mg tablet,crush resistant,extended release 12 hr (OxyContin) 20 mg PO BID Pain 01/23/22 [History Last Taken Unknown] tamsulosin 0.4 mg capsule 0.8 mg PO DAILY@0830 Retention 01/23/22 [History Last Taken Unknown] white petrolatum 1 applic topical BID Dryness 01/23/22 [History Last Taken Unknown] Allergy/AdvReac Type Severity Reaction Status Date / Time No Known Allergies Allergy Verified 01/21/22 08:48 Family History (Updated 01/23/22 @ 19:[address] Aristides Ding MD) Father CAD (coronary artery disease) Mother CAD (coronary artery disease) Surgical History Hx of ankle fusion Hx of hernia repair Hx of shoulder surgery Hx of total knee replacement Social History (Updated 01/23/22 @ 19:[address] Aristides Ding MD) household members: none Smoking Status: Never smoker alcohol intake: current alcohol intake frequency: 3 or more drinks per day Alcohol type: beer details: 48 beers per week. substance use type: does not use Physical Exam Narrative Right foot/ankle/leg - incision site posterior heel and ankle well coapted with sutures intact, no dehiscence, bleeding is controlled, there is no cellulitis, no fluctuance, no crepitus, no maloder, no necrosis, no blistering present; there is some ecchymosis to the ankle/foot c/w normal post op course, CFT < 2 seconds to all toes with normal temperature present, there is some edema to the foot/ankle c/w normal post op course, no edema to the leg, no calf pain. Calf is soft and supple with no evidence of DVT bilateral. Post op alignment appears to be maintained clinically with right foot plantigrade. Right STJ and ankle rigid c/w arthrodesis. No evidence of compartment syndrome right foot\ankle/leg. Const alert, oriented x3 and no apparent distress Lab / Micro Data Result Diagrams: 01/24/22 05:17 01/24/22 05:17 Micro: Microbiology 01/26/22 09:40 Urine, Clean Catch Urine Culture - Preliminary Culture exhibits no growth.
[2022-01-28] MEDS: Folic Acid 1 MG Tablet PO (08:33)
[2022-01-28] MEDS: Tamsulosin HCl 0.4 MG Capsule 0.8 MG PO (08:33)
[2022-01-28] MEDS: Ensure Plus High Protein 120 ML LIQUID PO ×2 (12:11→17:13)
[2022-01-28] MEDS: oxyCODONE 5 MG Tablet PO ×2 (12:17→20:13)
--- NOTE | 2022-01-28 13:16 | CASEMGMT ---
Social Work BIMS () and PHQ-9 (08/18) completed for MDS assessment. Educated pt to medication for appetite stimulant for poor appetite. Pt agreeable. Written communication left of Dr if agreeable to order. SW explored alcohol intake further. Pt still consistent with stating he drinks one or two beers some days, not always every day. Pt denied abuse or wanting resources to stop alcohol intake. Slaone Grace ,CALL CENTER OPERATIONS MANAGER BEATER ROOM SUPERVISOR
--- NOTE | 2022-01-28 13:26 | MDS.RN ---
Pain interview for INDERJIT 01/30/22
[2022-01-28] MEDS: LORazepam 1 MG Tablet PO (14:42)
[2022-01-28 15:46] VITALS: BP 146/78; PULSE 69; RESP 16; TEMP 36.6; O2SAT 97
[2022-01-28] MEDS: Mirtazapine 15 MG Tablet 7.5 MG PO (19:59)
[2022-01-28 21:00] VITALS: PULSE 67; RESP 18; O2SAT 96
[2022-01-29] MEDS: Polyethylene Glycol 3350 17 GM PACKET PO (05:18)
[2022-01-29] MEDS: DULoxetine Hcl 60 MG Capsule PO (05:19)
[2022-01-29] MEDS: oxyCODONE HCl Cr 10 MG Tablet 20 MG PO ×2 (05:19→18:00)
[2022-01-29] MEDS: Enoxaparin 40 MG/0.4 ML Syringe SC (05:19)
[2022-01-29] MEDS: Furosemide 20 MG Tablet PO (05:19)
[2022-01-29] MEDS: Senna/Docusate Sodium 1 Tablet 2 TABLET PO (05:20)
[2022-01-29] MEDS: Menthol/Lanolin/Calamine/Znox 113 GM Tube 1 APPLIC TOPICAL ×2 (05:21→18:00)
[2022-01-29] MEDS: Petrolatum,White 5 GM PACKET 1 APPLIC TOPICAL ×2 (05:24→18:01)
[2022-01-29 05:26] VITALS: BP 132/72; PULSE 60
[2022-01-29] MEDS: Tamsulosin HCl 0.4 MG Capsule 0.8 MG PO (09:06)
[2022-01-29] MEDS: Ensure Plus High Protein 120 ML LIQUID PO ×3 (09:06→18:00)
[2022-01-29] MEDS: Folic Acid 1 MG Tablet PO (09:06)
[2022-01-29] MEDS: oxyCODONE 5 MG Tablet PO (11:07)
[2022-01-29 15:14] VITALS: BP 124/75; PULSE 70; RESP 16; TEMP 36.4; O2SAT 95
[2022-01-29] MEDS: Mirtazapine 15 MG Tablet 7.5 MG PO (21:45)
[2022-01-29 23:38] VITALS: PULSE 67; RESP 18; O2SAT 96
[2022-01-30] MEDS: Polyethylene Glycol 3350 17 GM PACKET PO (06:07)
[2022-01-30] MEDS: oxyCODONE HCl Cr 10 MG Tablet 20 MG PO ×2 (06:13→17:56)
[2022-01-30] MEDS: DULoxetine Hcl 60 MG Capsule PO (06:14)
[2022-01-30] MEDS: Enoxaparin 40 MG/0.4 ML Syringe SC (06:14)
[2022-01-30] MEDS: Furosemide 20 MG Tablet PO (06:15)
[2022-01-30] MEDS: Petrolatum,White 5 GM PACKET 1 APPLIC TOPICAL ×2 (06:16→17:59)
[2022-01-30] MEDS: Menthol/Lanolin/Calamine/Znox 113 GM Tube 1 APPLIC TOPICAL (06:20)
[2022-01-30 06:25] VITALS: BP 121/69; PULSE 65
[2022-01-30] MEDS: Tamsulosin HCl 0.4 MG Capsule 0.8 MG PO (08:17)
[2022-01-30] MEDS: Folic Acid 1 MG Tablet PO (08:17)
[2022-01-30] MEDS: LORazepam 1 MG Tablet PO (08:17)
[2022-01-30] MEDS: Oxymetazoline 0.05% 1 SPRAY SPRAY.BTL NASAL ×2 (08:29→20:06)
[2022-01-30] MEDS: Acetaminophen 500 MG Tablet 1000 MG PO ×2 (11:39→20:01)
[2022-01-30] MEDS: Ensure Plus High Protein 120 ML LIQUID PO ×2 (11:40→17:57)
[2022-01-30 15:36] VITALS: BP 109/61; PULSE 64; RESP 14; TEMP 36; O2SAT 92
[2022-01-30] MEDS: Senna/Docusate Sodium 1 Tablet 2 TABLET PO (17:56)
[2022-01-30] MEDS: Mirtazapine 15 MG Tablet 7.5 MG PO (20:02)
[2022-01-31 05:26] LABS: Absolute Lymphocyte Count 1.77 X10^3/uL (0.83-4.51); Absolute Neutrophil Count 3.7 X10^3/uL (2.0-7.7); Basophil# 0.08 X10^3/uL; Basophil% 1.1 % (0-1); Eosinophils% 4.3 % (0-5); Hematocrit 29.7 % (40-54); Hemoglobin 9.9 g/dL (13.0-16.5); Lymphocyte # 1.77 X10^3/ul (0.83-4.51); Lymphocyte % 25.3 % (19-41); Mean Corp Hgb Conc 33.3 g/dL (32-36); Mean Corpuscular Hgb 33.6 pg (27.0-32.0); Mean Corpuscular Volume 100.7 fL (80-94); Mean Platelet Vol. 9.1 fl (6.2-12.0); Monocyte# 1.05 X10^3/uL; NRBC Flagged by Analyzer 0 % (0-5); Platelet Count 338 K/mm3 (150-450); RBC Distribution Width CV 13.6 % (11.6-14.6); RBC Distribution Width SD 50.2 fl (35.1-43.9); Red Blood Count 2.95 M/mm3 (4.6-6.2)
[2022-01-31 05:57] LABS: Anion Gap 5 (5-15); BUN 21 mg/dL (7-18); BUN/Creat Ratio 21.7 RATIO (10-20); Calcium,Total 9.1 mg/dL (8.5-10.1); Chloride 100 mmol/L (98-107); Creatinine, Serum 0.97 mg/dL (0.70-1.30); EST Glomerular Filtration Rate 80 mL/min (>60); Est Glom Filt Rate - Afr Amer 96 mL/min (>60); Estimated Creatinine Clearance 63.76 ml/min; Glucose 97 mg/dL (74-106); Potassium 4.3 mmol/L (3.5-5.1); Sodium Level 136 mmol/L (136-145)
[2022-01-31 06:00] VITALS: BP 138/68; PULSE 56; RESP 16; TEMP 36.4; O2SAT 96
[2022-01-31] MEDS: oxyCODONE HCl Cr 10 MG Tablet 20 MG PO ×2 (06:41→17:38)
[2022-01-31] MEDS: DULoxetine Hcl 60 MG Capsule PO (06:42)
[2022-01-31] MEDS: Senna/Docusate Sodium 1 Tablet 2 TABLET PO ×2 (06:42→17:42)
[2022-01-31] MEDS: Polyethylene Glycol 3350 17 GM PACKET PO (06:42)
[2022-01-31] MEDS: Enoxaparin 40 MG/0.4 ML Syringe SC (06:42)
[2022-01-31] MEDS: Furosemide 20 MG Tablet PO (06:42)
[2022-01-31] MEDS: Menthol/Lanolin/Calamine/Znox 113 GM Tube 1 APPLIC TOPICAL ×2 (06:43→17:39)
[2022-01-31] MEDS: Petrolatum,White 5 GM PACKET 1 APPLIC TOPICAL ×2 (06:44→17:41)
[2022-01-31] MEDS: oxyCODONE 5 MG Tablet PO ×2 (08:13→21:03)
[2022-01-31] MEDS: Acetaminophen 500 MG Tablet 1000 MG PO ×2 (08:13→21:02)
[2022-01-31] MEDS: Tamsulosin HCl 0.4 MG Capsule 0.8 MG PO (08:14)
[2022-01-31] MEDS: Folic Acid 1 MG Tablet PO (08:14)
[2022-01-31] MEDS: Ensure Plus High Protein 120 ML LIQUID PO ×3 (08:14→17:38)
[2022-01-31] MEDS: LORazepam 1 MG Tablet PO (08:19)
--- NOTE | 2022-01-31 09:18 | NURSING ---
Supply Chain Technician Note; MDS complete for INDERJIT 01/30
[2022-01-31] MEDS: Tuberculin,Purif.prot.deriv. 50 TU/ML Vial 0.1 ML ID (11:00)
[2022-01-31 14:23] VITALS: BP 101/62; PULSE 71; RESP 16; TEMP 36.2; O2SAT 95
[2022-01-31] MEDS: Bisacodyl 5 MG Tablet 10 MG PO (17:38)
[2022-01-31] MEDS: Oxymetazoline 0.05% 1 SPRAY SPRAY.BTL NASAL (17:38)
[2022-01-31] MEDS: Mirtazapine 15 MG Tablet 7.5 MG PO (21:02)
[2022-01-31] MEDS: MENTHOL 226.8 GM JAR 1 APPLIC TOPICAL (21:08)
[2022-02-01 05:00] LABS: Bacteria 0 SEEN /hpf (None Seen); Mucous, Urine 0 SEEN /hpf (<or=2+); Red Blood Cells-Urine 0 SEEN /hpf (0-5); Squamous Epithelial Cells - UA 0 SEEN /hpf (0-5); White Blood Cells 0 SEEN /hpf (0-5)
[2022-02-01 05:13] LABS: Color, Urine Yellow (Yellow); Glucose, Dipstick Normal (Normal); Ketone-Dipstick Negative (Negative); Leukocyte Esterase-Dipstick Negative /ul (Negative); Nitrite-Dipstick Negative (Negative); Occult Blood-Urine Negative /ul (Negative); Protein-Dipstick Negative (Negative); Urine Bilirubin Dipstick Negative (Negative); Urine Clarity Clear (Clear); Urine Urobilinogen Normal (Normal); Urine pH 6.5 (5.0 - 8.0)
[2022-02-01] MEDS: Furosemide 20 MG Tablet PO (05:59)
[2022-02-01] MEDS: DULoxetine Hcl 60 MG Capsule PO (05:59)
[2022-02-01] MEDS: Enoxaparin 40 MG/0.4 ML Syringe SC (05:59)
[2022-02-01] MEDS: Acetaminophen 500 MG Tablet 1000 MG PO (06:07)
[2022-02-01] MEDS: Menthol/Lanolin/Calamine/Znox 113 GM Tube 1 APPLIC TOPICAL ×2 (06:11→17:36)
[2022-02-01] MEDS: oxyCODONE HCl Cr 10 MG Tablet 20 MG PO ×2 (06:26→17:44)
[2022-02-01] MEDS: Petrolatum,White 5 GM PACKET 1 APPLIC TOPICAL ×2 (06:28→17:44)
[2022-02-01] MEDS: LORazepam 1 MG Tablet PO ×2 (06:30→21:29)
[2022-02-01] MEDS: MENTHOL 226.8 GM JAR 1 APPLIC TOPICAL ×2 (06:31→08:29)
[2022-02-01] MEDS: Tamsulosin HCl 0.4 MG Capsule 0.8 MG PO (08:26)
[2022-02-01] MEDS: Ensure Plus High Protein 120 ML LIQUID PO ×3 (08:26→17:42)
[2022-02-01] MEDS: Folic Acid 1 MG Tablet PO (08:26)
[2022-02-01 14:46] VITALS: BP 127/74; PULSE 69; RESP 16; TEMP 37; O2SAT 95
[2022-02-01] MEDS: NYSTATIN 500,000 UNIT/5 ML UDC 500000 UNIT PO ×2 (17:35→21:22)
[2022-02-01] MEDS: Senna/Docusate Sodium 1 Tablet 2 TABLET PO (17:37)
[2022-02-01] MEDS: Oxymetazoline 0.05% 1 SPRAY SPRAY.BTL NASAL (17:39)
[2022-02-01] MEDS: Mirtazapine 15 MG Tablet 7.5 MG PO (21:20)
[2022-02-01] MEDS: oxyCODONE 5 MG Tablet PO (21:21)
[2022-02-02 07:05] VITALS: BP 134/67; PULSE 66
[2022-02-02] MEDS: Menthol/Lanolin/Calamine/Znox 113 GM Tube 1 APPLIC TOPICAL ×2 (07:08→16:56)
[2022-02-02] MEDS: DULoxetine Hcl 60 MG Capsule PO (07:09)
[2022-02-02] MEDS: Furosemide 20 MG Tablet PO (07:09)
[2022-02-02] MEDS: oxyCODONE HCl Cr 10 MG Tablet 20 MG PO ×2 (07:10→16:52)
[2022-02-02] MEDS: Senna/Docusate Sodium 1 Tablet 2 TABLET PO ×2 (07:10→16:52)
[2022-02-02] MEDS: Enoxaparin 40 MG/0.4 ML Syringe SC (07:10)
[2022-02-02] MEDS: NYSTATIN 500,000 UNIT/5 ML UDC 500000 UNIT PO ×4 (07:11→20:08)
[2022-02-02] MEDS: Petrolatum,White 5 GM PACKET 1 APPLIC TOPICAL ×2 (07:15→16:54)
[2022-02-02] MEDS: Ensure Plus High Protein 120 ML LIQUID PO ×3 (08:57→16:52)
[2022-02-02] MEDS: Folic Acid 1 MG Tablet PO (08:58)
[2022-02-02] MEDS: Tamsulosin HCl 0.4 MG Capsule 0.8 MG PO (08:58)
[2022-02-02] MEDS: LORazepam 1 MG Tablet PO ×2 (09:09→20:11)
--- NOTE | 2022-02-02 13:25 | MDS.RN ---
Information for the mds was obtained from review of the clinical record, interview of resident, staff, and direct observation of resident's care. PDPM codes did not generate with completion of MDS, [facility], information systems aware.
[2022-02-02 16:00] VITALS: BP 142/72; PULSE 85; RESP 16; TEMP 36.6; O2SAT 97
[2022-02-02 20:05] VITALS: PULSE 80; RESP 14; O2SAT 96
[2022-02-02] MEDS: Mirtazapine 15 MG Tablet 7.5 MG PO (20:07)
[2022-02-02] MEDS: Oxymetazoline 0.05% 1 SPRAY SPRAY.BTL NASAL (20:07)
[2022-02-02] MEDS: Acetaminophen 500 MG Tablet 1000 MG PO (20:19)
[2022-02-03] MEDS: Furosemide 20 MG Tablet PO (05:31)
[2022-02-03] MEDS: Enoxaparin 40 MG/0.4 ML Syringe SC (05:31)
[2022-02-03] MEDS: DULoxetine Hcl 60 MG Capsule PO (05:31)
[2022-02-03] MEDS: Polyethylene Glycol 3350 17 GM PACKET PO (05:32)
[2022-02-03] MEDS: NYSTATIN 500,000 UNIT/5 ML UDC 500000 UNIT PO ×4 (05:33→22:02)
[2022-02-03] MEDS: Menthol/Lanolin/Calamine/Znox 113 GM Tube 1 APPLIC TOPICAL ×2 (05:33→17:47)
[2022-02-03] MEDS: Senna/Docusate Sodium 1 Tablet 2 TABLET PO ×2 (05:34→17:47)
[2022-02-03] MEDS: Petrolatum,White 5 GM PACKET 1 APPLIC TOPICAL ×2 (05:35→17:47)
[2022-02-03] MEDS: oxyCODONE HCl Cr 10 MG Tablet 20 MG PO ×2 (05:38→17:53)
[2022-02-03] MEDS: Folic Acid 1 MG Tablet PO (08:45)
[2022-02-03] MEDS: Tamsulosin HCl 0.4 MG Capsule 0.8 MG PO (08:46)
[2022-02-03] MEDS: Ensure Plus High Protein 120 ML LIQUID PO ×2 (08:46→17:54)
[2022-02-03 13:49] VITALS: BP 120/58; PULSE 71; RESP 16; TEMP 36.8; O2SAT 97
[2022-02-03] MEDS: oxyCODONE 5 MG Tablet PO (14:03)
--- NOTE | 2022-02-03 14:25 | CASEMGMT ---
Addendum entered by Sloane Grace 02/03/22 16:38: SO will also be ordering MOW for pt when SO is working and cannot provide meals. Addendum entered by Sloaen Grace 02/03/22 16:31: Received 4 missed calls from SO. SW returned phone call and discussed discharge plans. SO wanting to get Dr. Vidal's recommendation on discharge as she states after surgery, Dr. Vidal stated pt would need to be in the TCU for 4-8 weeks. Educated SO that IDT recommending pt DC in about a week as pt is able to complete steps and is adlib in room. Pt is not needing 24/7 supervision. SO can work usual hours. SO stated she is working to get lift chair built in the living room and a real w/c ramp, instead of the not real w/c ramp currently in place, per SO. Educated to ordering HHC or outpatient PT/OT at DC. SO requests HHC with no preference of agency and requesting DC home 02/12, if Dr. Vidal is agreeable. SW agreed and sent email of skilled HHC providers to SO that include quality and resource data via [facility]. No DME needs. SO to transport home. EDGAR communicated to Dr. Vidal SO request for recommendation on discharge - to visit pt 02/04. Plan: DC home alone, with SO support, 02/12, HHC PT/OT THEODORE Vazquez Original Note: Social Work Left message with SO to discuss DC date and plans. THEODORE Vazquez
[2022-02-03] MEDS: Oxymetazoline 0.05% 1 SPRAY SPRAY.BTL NASAL (17:49)
[2022-02-03] MEDS: LORazepam 1 MG Tablet PO (22:01)
[2022-02-03] MEDS: Mirtazapine 15 MG Tablet 7.5 MG PO (22:02)
[2022-02-03] MEDS: tiZANidine HCl 2 MG Tablet 4 MG PO (22:02)
[2022-02-04] MEDS: DULoxetine Hcl 60 MG Capsule PO (05:48)
[2022-02-04] MEDS: oxyCODONE HCl Cr 10 MG Tablet 20 MG PO ×2 (05:48→17:43)
[2022-02-04] MEDS: Furosemide 20 MG Tablet PO (05:48)
[2022-02-04] MEDS: Senna/Docusate Sodium 1 Tablet 2 TABLET PO ×2 (05:48→17:42)
[2022-02-04] MEDS: NYSTATIN 500,000 UNIT/5 ML UDC 500000 UNIT PO ×4 (05:49→20:06)
[2022-02-04] MEDS: Enoxaparin 40 MG/0.4 ML Syringe SC (05:49)
[2022-02-04] MEDS: Menthol/Lanolin/Calamine/Znox 113 GM Tube 1 APPLIC TOPICAL ×2 (05:49→17:43)
[2022-02-04] MEDS: Petrolatum,White 5 GM PACKET 1 APPLIC TOPICAL ×2 (05:50→17:43)
[2022-02-04] MEDS: Polyethylene Glycol 3350 17 GM PACKET PO (06:12)
[2022-02-04] MEDS: Ensure Plus High Protein 120 ML LIQUID PO ×3 (08:27→17:44)
[2022-02-04] MEDS: Folic Acid 1 MG Tablet PO (08:29)
[2022-02-04] MEDS: Tamsulosin HCl 0.4 MG Capsule 0.8 MG PO (08:29)
--- NOTE | 2022-02-04 13:47 | PCM.PROGNOTE ---
Subjective Subjective Patient was seen today for follow up on right ankle. He is finishing up physical therapy when entering room. He is sitting in chair. Pain is controlled. Ankle has been getting better. Objective Data Objective Data Vital Signs: Vital Signs Temp Pulse Resp BP Pulse Ox O2 Del Method 98.2 F 71 16 120/58 L 97 Room Air 02/03/22 13:49 02/03/22 13:49 02/03/22 13:49 02/03/22 13:49 02/03/22 13:49 02/03/22 14:35 Oxygen Delivery Method Room Air Weight: 72.167 kg Body Mass Index (BMI) 23.3 Intake & Output: Intake and Output for Last 24 Hours 02/02/22 02/03/22 02/04/22 23:59 23:59 23:59 Intake Total 720 / 720 1200 / 1200 360 / 360 Balance 720 / 720 1200 / 1200 360 / 360 Lab / Micro Data Result Diagrams: 01/31/22 05:16 01/31/22 05:16 Micro: Microbiology 01/31/22 20:20 Urine, Clean Catch Urine Culture - Final Staphylococcus haemolyticus 01/30/22 08:25 Nasal Secretion SARS-CoV-2 Antigen (Rapid) - Final 01/26/22 09:40 Urine, Clean Catch Urine Culture - Final Culture exhibits no growth. Physical Exam Narrative Right foot/ankle/leg - incision site posterior heel and ankle well coapted with sutures intact, no dehiscence, there is no bleeding, no open lesion, there is no cellulitis, no fluctuance, no crepitus, no maloder, no necrosis, no blistering present; there is some ecchymosis to the ankle/foot c/w normal post op course - but much improved, CFT < 2 seconds to all toes with normal temperature present, there is some edema to the foot/ankle c/w normal post op course - it is less than last visit, no edema to the leg, no calf pain. Calf is soft and supple with no evidence of DVT bilateral. Post op alignment appears to be maintained clinically with right foot plantigrade. Right STJ and ankle rigid c/w arthrodesis. No evidence of compartment syndrome right foot\ankle/leg. Const alert, oriented x3 and no apparent distress Assessment & Plan Assessment/Plan (1) Arthritis of ankle, right: (2) Pain in right ankle and joints of right foot: PLAN: Plan s/p right tibiotalocalcaneal arthrodesis on 01/21/2022 - Foot/ankle doing well at this time. No weightbearing right foot. Keep right foot elevated with heel offloaded. Bandage changed - no evidence of infection and site healing well. Applied gauze, kerlix and harsha dressing with well padded posterior splint with heel offloaded. Keep dressing/splint right foot/ankle/leg clean, dry and intact. Pain management: Oxycodone, Oxycotin, and acetaminophen. DVT Prophylaxis: Lovenox 40mg subcutaneous daily. Will continue to follow weekly, sooner if needed. Discharge planning - patient has many risks factors (RA, age, alcohol hx, etc) - recommend patient continue to stay in nursing facility at this time to receive proper care while ankle continues to heal.
[2022-02-04 15:16] VITALS: BP 126/64; PULSE 75; RESP 16; TEMP 37.1; O2SAT 97
--- NOTE | 2022-02-04 15:44 | CASEMGMT ---
Social Work Dr. Vidal visiting pt. SW entered room. Discussed recommendations with pt and Dr. Vidal with DC plans. Educated Dr to Medicare guidelines. Dr recommending at least another two weeks in TCU for consistent nursing/Dr care, and pt having high risk factors to readmission. Pt agreeable to remain until Dr releases for DC. S.O. agreeable as well. SW updated IDT. Will continue to reevaulate DC and progress weekly. Sloane Grace, HEEL SPRAYER HOLDER PILE DRIVING
[2022-02-04] MEDS: Oxymetazoline 0.05% 1 SPRAY SPRAY.BTL NASAL (17:46)
[2022-02-04 20:00] VITALS: PULSE 84; RESP 16; O2SAT 94
[2022-02-04] MEDS: Mirtazapine 15 MG Tablet 7.5 MG PO (20:08)
[2022-02-04] MEDS: Acetaminophen 500 MG Tablet 1000 MG PO (20:14)
[2022-02-04] MEDS: oxyCODONE 5 MG Tablet PO (20:14)
[2022-02-04] MEDS: LORazepam 1 MG Tablet PO (20:15)
--- NOTE | 2022-02-04 21:15 | RAD_ITS ---
STUDY: X-RAY - RIGHT ANKLE REASON FOR EXAM: Male, 81 years old. post op TECHNIQUE: 3 view(s) of the ankle. COMPARISON: January 21, 2022. FINDINGS: Overlying cast obscures fine osseous detail. Posterior plate-screw fixation of the tibia talus and calcaneus unchanged from prior radiograph. No fracture. No significant osseous change. Mild diffuse soft tissue edema, significantly decreased from prior exam. RAD/Ankle min 3 Views IMPRESSION: Status post posterior fixation of the tibia talus and calcaneus without evidence of hardware failure or change from prior exam. Interval decrease in soft tissue edema. Electronically Signed: Odell Dickinson MD at 22:10 EDT ,
[2022-02-05] MEDS: Polyethylene Glycol 3350 17 GM PACKET PO (05:30)
[2022-02-05] MEDS: Enoxaparin 40 MG/0.4 ML Syringe SC (05:31)
[2022-02-05] MEDS: Senna/Docusate Sodium 1 Tablet 2 TABLET PO ×2 (05:31→17:41)
[2022-02-05] MEDS: oxyCODONE HCl Cr 10 MG Tablet 20 MG PO ×2 (05:31→17:40)
[2022-02-05] MEDS: Furosemide 20 MG Tablet PO (05:31)
[2022-02-05] MEDS: DULoxetine Hcl 60 MG Capsule PO (05:31)
[2022-02-05] MEDS: NYSTATIN 500,000 UNIT/5 ML UDC 500000 UNIT PO ×4 (05:35→20:01)
[2022-02-05] MEDS: Petrolatum,White 5 GM PACKET 1 APPLIC TOPICAL ×2 (05:36→17:45)
[2022-02-05 06:36] VITALS: BP 124/68; PULSE 63
[2022-02-05] MEDS: Ensure Plus High Protein 120 ML LIQUID PO ×3 (07:49→17:40)
[2022-02-05] MEDS: Tamsulosin HCl 0.4 MG Capsule 0.8 MG PO (07:50)
[2022-02-05] MEDS: Folic Acid 1 MG Tablet PO (07:50)
[2022-02-05] MEDS: Triamcinolone Acetonide 0.1% Cream 15 gm 1 APPLIC TOPICAL ×2 (07:52→17:43)
[2022-02-05] MEDS: Oxymetazoline 0.05% 1 SPRAY SPRAY.BTL NASAL ×2 (07:53→19:12)
[2022-02-05] MEDS: Acetaminophen 500 MG Tablet 1000 MG PO ×2 (07:55→20:08)
[2022-02-05] MEDS: oxyCODONE 5 MG Tablet PO (07:56)
[2022-02-05] MEDS: LORazepam 1 MG Tablet PO (13:51)
[2022-02-05 15:01] VITALS: BP 104/62; PULSE 73; RESP 18; TEMP 36.7; O2SAT 99
[2022-02-05] MEDS: Menthol/Lanolin/Calamine/Znox 113 GM Tube 1 APPLIC TOPICAL (17:42)
[2022-02-05] MEDS: Mirtazapine 15 MG Tablet 7.5 MG PO (20:00)
[2022-02-06] MEDS: oxyCODONE HCl Cr 10 MG Tablet 20 MG PO ×2 (05:05→17:29)
[2022-02-06] MEDS: Enoxaparin 40 MG/0.4 ML Syringe SC (05:06)
[2022-02-06] MEDS: Senna/Docusate Sodium 1 Tablet 2 TABLET PO (05:07)
[2022-02-06] MEDS: Menthol/Lanolin/Calamine/Znox 113 GM Tube 1 APPLIC TOPICAL ×2 (05:07→17:29)
[2022-02-06] MEDS: Furosemide 20 MG Tablet PO (05:07)
[2022-02-06] MEDS: DULoxetine Hcl 60 MG Capsule PO (05:07)
[2022-02-06] MEDS: NYSTATIN 500,000 UNIT/5 ML UDC 500000 UNIT PO ×4 (05:07→21:45)
[2022-02-06] MEDS: Oxymetazoline 0.05% 1 SPRAY SPRAY.BTL NASAL ×3 (05:08→23:41)
[2022-02-06] MEDS: Petrolatum,White 5 GM PACKET 1 APPLIC TOPICAL ×2 (05:09→17:30)
[2022-02-06] MEDS: Tamsulosin HCl 0.4 MG Capsule 0.8 MG PO (08:28)
[2022-02-06] MEDS: Folic Acid 1 MG Tablet PO (08:28)
[2022-02-06] MEDS: LORazepam 1 MG Tablet PO ×2 (08:41→21:52)
[2022-02-06] MEDS: Ensure Plus High Protein 120 ML LIQUID PO ×3 (08:43→17:29)
[2022-02-06 14:36] VITALS: BP 110/62; PULSE 75; RESP 17; TEMP 36.8; O2SAT 96
[2022-02-06] MEDS: Acetaminophen 500 MG Tablet 1000 MG PO (21:43)
[2022-02-06] MEDS: Mirtazapine 15 MG Tablet 7.5 MG PO (21:45)
[2022-02-06 22:00] VITALS: PULSE 75; RESP 18; O2SAT 97
[2022-02-07] MEDS: oxyCODONE HCl Cr 10 MG Tablet 20 MG PO ×2 (05:07→18:03)
[2022-02-07] MEDS: Petrolatum,White 5 GM PACKET 1 APPLIC TOPICAL ×2 (05:08→18:04)
[2022-02-07] MEDS: NYSTATIN 500,000 UNIT/5 ML UDC 500000 UNIT PO ×4 (05:08→21:55)
[2022-02-07] MEDS: Enoxaparin 40 MG/0.4 ML Syringe SC (05:08)
[2022-02-07] MEDS: DULoxetine Hcl 60 MG Capsule PO (05:09)
[2022-02-07] MEDS: Menthol/Lanolin/Calamine/Znox 113 GM Tube 1 APPLIC TOPICAL ×2 (05:09→18:03)
[2022-02-07] MEDS: Senna/Docusate Sodium 1 Tablet 2 TABLET PO ×2 (05:09→18:05)
[2022-02-07] MEDS: Furosemide 20 MG Tablet PO (05:09)
[2022-02-07] MEDS: LORazepam 1 MG Tablet PO ×2 (05:21→18:11)
[2022-02-07 05:29] LABS: Absolute Lymphocyte Count 2.08 X10^3/uL (0.83-4.51); Absolute Neutrophil Count 3.3 X10^3/uL (2.0-7.7); Basophil% 1.5 % (0-1); Eosinophil# 0.23 X10^3/uL; Eosinophils% 3.5 % (0-5); Hematocrit 32.3 % (40-54); Hemoglobin 10.4 g/dL (13.0-16.5); Lymphocyte # 2.08 X10^3/ul (0.83-4.51); Lymphocyte % 31.7 % (19-41); Mean Corp Hgb Conc 32.2 g/dL (32-36); Mean Corpuscular Hgb 32.2 pg (27.0-32.0); Mean Platelet Vol. 9.5 fl (6.2-12.0); Monocyte# 0.82 X10^3/uL; Monocyte% 12.5 % (0-10); NRBC Flagged by Analyzer 0 % (0-5); Neutrophil # 3.26 X10^3/uL (2.7-7.7); Neutrophil % 49.6 % (47-70); Platelet Count 342 K/mm3 (150-450); RBC Distribution Width CV 13.8 % (11.6-14.6); RBC Distribution Width SD 50.9 fl (35.1-43.9); Red Blood Count 3.23 M/mm3 (4.6-6.2); White Blood Count 6.6 K/mm3 (4.4-11.0)
[2022-02-07 06:30] LABS: Anion Gap 7 (5-15); BUN 26 mg/dL (7-18); BUN/Creat Ratio 25.5 RATIO (10-20); Calcium,Total 9.1 mg/dL (8.5-10.1); Chloride 102 mmol/L (98-107); Creatinine, Serum 1.02 mg/dL (0.70-1.30); EST Glomerular Filtration Rate 75 mL/min (>60); Est Glom Filt Rate - Afr Amer 90 mL/min (>60); Estimated Creatinine Clearance 59.94 ml/min; Glucose 91 mg/dL (74-106); Potassium 4.3 mmol/L (3.5-5.1); Sodium Level 138 mmol/L (136-145)
[2022-02-07] MEDS: Folic Acid 1 MG Tablet PO (08:57)
[2022-02-07] MEDS: Tamsulosin HCl 0.4 MG Capsule 0.8 MG PO (08:58)
[2022-02-07] MEDS: Ensure Plus High Protein 120 ML LIQUID PO ×3 (09:04→18:03)
[2022-02-07 13:35] VITALS: BP 141/72; PULSE 82; RESP 18; TEMP 36.5; O2SAT 97
--- NOTE | 2022-02-07 15:37 | CASEMGMT ---
Addendum entered by Sloane Grace 02/08/22 14:30: Plan: DC home 02/19, [facility] PT/OT/SN Addendum entered by Sloane Grace 02/08/22 14:28: [facility] and [facility] all can accept. Updated SO and prefers to use [facility]. Updated all agencies. Addendum entered by Sloane Grace 02/08/22 13:19: [facility] unable to service pt's area. Sent referrals to other [facility] agencies [facility] since area is unique. Original Note: Social Work Followed up with pt and SO in room. SO/pt requesting DC at the end of 4 weeks which is 02/19. IDT agreeable. SO/pt requesting [facility]. SW made referral for PT/OT. No DME needs. SO to transport. Plan: DC home alone with SO support 02/19, [facility] PT/OT THEODORE VazquezW
[2022-02-07] MEDS: Oxymetazoline 0.05% 1 SPRAY SPRAY.BTL NASAL (15:41)
[2022-02-07] MEDS: DiphenhydrAMINE 25 MG Capsule PO (18:12)
[2022-02-07] MEDS: oxyCODONE 5 MG Tablet PO (21:58)
[2022-02-07] MEDS: Mirtazapine 15 MG Tablet 7.5 MG PO (21:58)
[2022-02-07] MEDS: Acetaminophen 500 MG Tablet 1000 MG PO (21:59)
[2022-02-08] MEDS: Oxymetazoline 0.05% 1 SPRAY SPRAY.BTL NASAL ×2 (05:58→16:26)
[2022-02-08] MEDS: Furosemide 20 MG Tablet PO (05:59)
[2022-02-08] MEDS: DULoxetine Hcl 60 MG Capsule PO (05:59)
[2022-02-08] MEDS: oxyCODONE HCl Cr 10 MG Tablet 20 MG PO ×2 (05:59→18:32)
[2022-02-08] MEDS: Senna/Docusate Sodium 1 Tablet 2 TABLET PO ×2 (05:59→18:32)
[2022-02-08] MEDS: Enoxaparin 40 MG/0.4 ML Syringe SC (06:00)
[2022-02-08] MEDS: Petrolatum,White 5 GM PACKET 1 APPLIC TOPICAL ×2 (06:01→18:33)
[2022-02-08] MEDS: NYSTATIN 500,000 UNIT/5 ML UDC 500000 UNIT PO ×4 (06:01→21:52)
[2022-02-08] MEDS: Menthol/Lanolin/Calamine/Znox 113 GM Tube 1 APPLIC TOPICAL ×2 (06:05→18:35)
[2022-02-08] MEDS: Ensure Plus High Protein 120 ML LIQUID PO ×2 (08:49→18:33)
[2022-02-08] MEDS: Folic Acid 1 MG Tablet PO (08:49)
[2022-02-08] MEDS: Tamsulosin HCl 0.4 MG Capsule 0.8 MG PO (08:49)
[2022-02-08] MEDS: LORazepam 1 MG Tablet PO (08:55)
[2022-02-08 14:19] VITALS: BP 126/71; PULSE 82; RESP 17; TEMP 36.6; O2SAT 96
[2022-02-08] MEDS: Acetaminophen 500 MG Tablet 1000 MG PO (15:47)
--- NOTE | 2022-02-08 19:29 | DS.PCM_ITS ---
Providers Date of Admission: 01/23/22 Primary Care Physician: Dr. Steve Spears MD Consultations 01/24/22 04:50 Consult: Podiatry Routine Consulting Provider: Aram Vidal Reason for Consult: Post-surgical wound care and assessment EMERGENT Consult: No MD Notified: Yes Date Notified: 01/24/22 Time Notified: 09:30 Method of Notification: Verbal Reason For Visit: RIGHT ANKEL JOINT ARTHRODESIS Diagnosis Discharge Diagnosis (1) Arthritis of ankle, right: Status: Chronic Code(s): M19.071 - Primary osteoarthritis, right ankle and foot (2) Pain in right ankle and joints of right foot: Status: Acute Code(s): M25.571 - Pain in right ankle and joints of right foot Plan 81 year old male with below past medical history hospitalized for right ankle fusion 01/21/[address] Vidal, complicated by urinary retention, alcohol abuse, admitted to TCU with debility, here for rehabilitation, strengthening, prior to discharge home alone. * Debility - PT/OT. * Pain - Tylenol 1000mg q6h prn pain (1-3), Oxycontin 20mg bid, Oxycodone 5mg q4h prn pain (6-10). * Bowel - Lactulose 10gm bid. * Adult immunization - Administer pneumonia vaccine, covid19 vaccine, flu vaccine as appropriate. * DVT prophylaxis - Lovenox 40mg sc daily. 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 * Edema - Furosemide 20mg bid. * Anxiety/benzodiazepine dependence/alcohol withdrawal - Lorazepam 1mg q6h prn, stable chronic prison use, GDR not recommended. * Skin irritation - Eucerin topical bid. * BPH/urinary retention - Tamsulosin 0.8mg daily. * Muscle spasm - Tizanidine 4mg q8h prn. Medications at Discharge Home Medications tizanidine 2 mg tablet 4 mg PO Q8H PRN PRN Muscle Spasm #0 tabs 01/22/22 furosemide 20 mg tablet 20 mg PO DAILY Diuretic 01/23/22 acetaminophen 500 mg tablet 1,000 mg PO Q6H PRN PRN Pain Score 1-5 #0 tabs 02/08/22 bisacodyl 5 mg tablet,delayed release 10 mg PO DAILY PRN Constipation 30 days #30 tabs 02/08/22 duloxetine 60 mg capsule,delayed release 60 mg PO DAILY 30 days #30 caps 02/08/22 enoxaparin 40 mg/0.4 mL subcutaneous syringe 40 mg (0.4 mL) subcut DAILY@0600 Anticoagulant 30 days #12 mL 02/08/22 folic acid 1 mg tablet 1 mg PO BREAKFAST #0 tabs 02/08/22 lorazepam 1 mg tablet 1 mg PO Q6H PRN PRN Anxiety 3 days #12 tabs 02/08/22 oxycodone 10 mg tablet,crush resistant,extended release 12 hr (OxyContin) 20 mg PO BID Pain 3 days #12 tabs 02/08/22 oxycodone 5 mg tablet 5 mg PO Q4H PRN PRN Pain Score 6-10 3 days #18 tabs 02/08/22 oxycodone 5 mg tablet 5 mg PO Q4H PRN PRN Pain Score 6-10 3 days #18 tabs 02/08/22 sennosides 8.6 mg-docusate sodium 50 mg tablet (Stool Softener-Stimulant Laxative) 2 tab PO BID 30 days #120 tabs 02/08/22 tamsulosin 0.4 mg capsule 0.8 mg PO DAILY@0830 Retention 30 days #60 caps 02/08/22 Hospital Course Operations - (Right ankle fusion. ) Procedures None Summary of Care Provided Minutes Spent on Discharge: 35 Hospital Course: 81 year old male with below past medical history hospitalized for right ankle fusion 01/21/[address] Vidal, complicated by urinary retention, alcohol abuse, admitted to TCU with debility, here for rehabilitation, strengthening, prior to discharge home alone. Consider treatment of alcoholism. Amilcar drinks 48 beers per week. Discharge home alone 02/19/2022, [facility] PT/OT/SN. Physical Exam Const alert General Appearance: cooperative HEENT normocephalic Eyes PERRL and EOMs intact bilaterally Neck supple, no JVD and no carotid bruits Resp normal respiratory effort, normal air movement and clear to auscultation bilaterally Cardio regular rate and regular rhythm GI normal to inspection, nondistended, normoactive bowel sounds, non-tender and non-distended Extremity normal capillary refill Extremity Narrative: Right ankle splint. General Extremity: Negative for edema Skin no rashes or lesions noted General Skin Exam: no breakdown Psych affect normal Appearance: appropriate Weight / BMI Weight Weight: 71.668 kg Body Mass Index (BMI) 23.3 ABG / Lab / Microbiology Data Result Diagrams: 02/07/22 05:06 02/07/22 05:06 Microbiology: Microbiology 01/31/22 20:20 Urine, Clean Catch Urine Culture - Final Staphylococcus haemolyticus 01/30/22 08:25 Nasal Secretion SARS-CoV-2 Antigen (Rapid) - Final 01/26/22 09:40 Urine, Clean Catch Urine Culture - Final Culture exhibits no growth. D/C Instructions Discharge Diet: No restrictions Discharge Activity: Return to Normal Activity, May Shower and Use Walker Weight Bearing Status: No weight bearing (Right lower extremity.) Call your doctor if you observe: Fever of 101 or Higher, Inability to urinate, Inability to have a bowel movement, Shortness of breath, Dizziness, Fainting spells, Chest pain and Uncontrolled pain Additional Instructions: Discharge home alone 02/19/2022, [facility] PT/OT/SN. Please Follow Up With: Aram Vidal DPM When: 1 week. Meaningful Use Info Meaningful Use Diagnoses (Choose all that apply): None applicable Discharge Plan Admission Admit Date/Time: 01/23/22 16:38 Primary Reason for Your Visit: Debility. Attending Provider: Aristides Ding Chi Primary Care Provider: Steve Spears Consulting Providers: Aram Vidla Instructions Additional Instructions / Restrictions: Discharge home alone 02/19/2022, [facility] PT/OT/SN. Discharge Orders/Prescriptions Prescriptions: New acetaminophen 500 mg Tablet 1,000 mg PO Q6H PRN PRN (Reason: Pain Score 1-5) Qty: 0 0RF bisacodyl 5 mg Tablet,Delayed Release (Dr/Ec) 10 mg PO DAILY PRN (Reason: Constipation) 30 Days Qty: 30 0RF folic acid 1 mg Tablet 1 mg PO BREAKFAST Qty: 0 0RF duloxetine 60 mg Capsule,Delayed Release(Dr/Ec) 60 mg PO DAILY 30 Days Qty: 30 0RF sennosides-docusate sodium [Stool Softener-Stimulant Laxat] 8.6-50 mg Tablet 2 tab PO BID 30 Days Qty: 120 0RF oxycodone 5 mg Tablet 5 mg PO Q4H PRN PRN (Reason: Pain Score 6-10) 3 Days Qty: 18 0RF Continued tizanidine 2 mg Tablet 4 mg PO Q8H PRN PRN (Reason: Muscle Spasm) Qty: 0 0RF furosemide 20 mg tablet 20 mg PO DAILY tamsulosin 0.4 mg capsule 0.8 mg PO DAILY@0830 30 Days Qty: 60 0RF lorazepam 1 mg Tablet 1 mg PO Q6H PRN PRN (Reason: Anxiety) 3 Days Qty: 12 0RF oxycodone 5 mg Tablet 5 mg PO Q4H PRN PRN (Reason: Pain Score 6-10) 3 Days Qty: 18 0RF enoxaparin 40 mg/0.4 mL syringe 40 mg subcut DAILY@0600 30 Days Qty: 12 0RF oxycodone [OxyContin] 10 mg tablet,oral only,ext.rel.12 hr 20 mg PO BID 3 Days Qty: 12 0RF Discontinued acetaminophen 500 mg Tablet 500 mg PO Q4H PRN PRN (Reason: Pain Score 1-10) Qty: 0 0RF doxycycline monohydrate 100 mg capsule 100 mg PO BID Rx Instructions: take for 5 days, then discontinue on 01/28/22 lactulose 20 gram/30 mL solution 10 g PO BID white petrolatum Ointment In Packet 1 applic topical BID Protocol: *Topical Application Instructions APPLICATION INSTRUCTIONS: Apply to Left Ear Incision/stitches as needed for dryness- Must stay moist. Apply every time dry. Rx Instructions: apply to surgical site on left outer ear bid Referrals / Follow Up: Aram Vidal DPM [Med Staff - Active Staff] - Steve Spears MD [Primary Care Provider] - Disposition Disposition (needs filled in before D/C Order can be placed): Home Health Service
[2022-02-08] MEDS: Mirtazapine 15 MG Tablet 7.5 MG PO (21:52)
[2022-02-09] MEDS: Senna/Docusate Sodium 1 Tablet 2 TABLET PO ×2 (05:20→18:25)
[2022-02-09] MEDS: Oxymetazoline 0.05% 1 SPRAY SPRAY.BTL NASAL ×2 (05:20→18:25)
[2022-02-09] MEDS: Enoxaparin 40 MG/0.4 ML Syringe SC (05:21)
[2022-02-09] MEDS: DULoxetine Hcl 60 MG Capsule PO (05:21)
[2022-02-09] MEDS: Furosemide 20 MG Tablet PO (05:21)
[2022-02-09] MEDS: Polyethylene Glycol 3350 17 GM PACKET PO (05:21)
[2022-02-09] MEDS: NYSTATIN 500,000 UNIT/5 ML UDC 500000 UNIT PO ×4 (05:21→22:14)
[2022-02-09] MEDS: oxyCODONE HCl Cr 10 MG Tablet 20 MG PO ×2 (05:27→18:23)
[2022-02-09] MEDS: Menthol/Lanolin/Calamine/Znox 113 GM Tube 1 APPLIC TOPICAL ×2 (05:35→18:28)
[2022-02-09] MEDS: Petrolatum,White 5 GM PACKET 1 APPLIC TOPICAL ×2 (05:35→18:24)
[2022-02-09] MEDS: LORazepam 1 MG Tablet PO ×2 (06:42→18:25)
[2022-02-09] MEDS: Triamcinolone Acetonide 0.1% Cream 15 gm 1 APPLIC TOPICAL (06:43)
[2022-02-09] MEDS: Folic Acid 1 MG Tablet PO (08:30)
[2022-02-09] MEDS: Tamsulosin HCl 0.4 MG Capsule 0.8 MG PO (08:30)
[2022-02-09] MEDS: Bisacodyl 5 MG Tablet 10 MG PO (08:35)
[2022-02-09 13:36] VITALS: BP 120/64; PULSE 73; RESP 18; TEMP 36.3; O2SAT 98
--- NOTE | 2022-02-09 15:04 | NURSING ---
Patient expresses anxiety about home-going medications and wanting to know what they are for. Patient given handout of medications and reasons and gone over with pt. Pt expresses understanding and appears more calm.
--- NOTE | 2022-02-09 19:44 | NURSING ---
LINEN CHECKER notifies this nurse that patient reports skin tear to right elbow, patient assessed, patient states skin tear to right elbow from bumping it on the call light, offered to pad/protect call light, patient declines stating will move call light to different location to prevent further skin tears. Dressing applied per order. Skin tear 1cm L x 0.2 cm w x 0.1 cm D, scant red drainage, denies pain. No distress observed or reported. Denies requests. Call light in reach.
[2022-02-09] MEDS: Acetaminophen 500 MG Tablet 1000 MG PO (22:07)
[2022-02-09] MEDS: oxyCODONE 5 MG Tablet PO (22:10)
[2022-02-09] MEDS: Mirtazapine 15 MG Tablet 7.5 MG PO (22:14)
[2022-02-09] MEDS: Ensure Plus High Protein 120 ML LIQUID PO (22:21)
[2022-02-10] MEDS: NYSTATIN 500,000 UNIT/5 ML UDC 500000 UNIT PO ×4 (06:09→20:53)
[2022-02-10] MEDS: Furosemide 20 MG Tablet PO (06:09)
[2022-02-10] MEDS: Polyethylene Glycol 3350 17 GM PACKET PO (06:09)
[2022-02-10] MEDS: DULoxetine Hcl 60 MG Capsule PO (06:09)
[2022-02-10] MEDS: Enoxaparin 40 MG/0.4 ML Syringe SC (06:09)
[2022-02-10] MEDS: Acetaminophen 500 MG Tablet 1000 MG PO ×2 (06:09→20:55)
[2022-02-10] MEDS: Menthol/Lanolin/Calamine/Znox 113 GM Tube 1 APPLIC TOPICAL ×2 (06:09→17:00)
[2022-02-10] MEDS: oxyCODONE HCl Cr 10 MG Tablet 20 MG PO ×2 (06:09→16:59)
[2022-02-10] MEDS: Oxymetazoline 0.05% 1 SPRAY SPRAY.BTL NASAL ×2 (06:10→16:58)
[2022-02-10] MEDS: Petrolatum,White 5 GM PACKET 1 APPLIC TOPICAL ×2 (06:11→17:01)
[2022-02-10] MEDS: Ensure Plus High Protein 120 ML LIQUID PO ×4 (06:11→20:53)
[2022-02-10] MEDS: LORazepam 1 MG Tablet PO ×2 (07:41→18:34)
[2022-02-10] MEDS: Tamsulosin HCl 0.4 MG Capsule 0.8 MG PO (07:42)
[2022-02-10] MEDS: Folic Acid 1 MG Tablet PO (07:42)
[2022-02-10 13:40] VITALS: BP 121/64; PULSE 62; RESP 16; TEMP 36; O2SAT 98
[2022-02-10] MEDS: Senna/Docusate Sodium 1 Tablet 2 TABLET PO (17:01)
[2022-02-10] MEDS: Triamcinolone Acetonide 0.1% Cream 15 gm 1 APPLIC TOPICAL (20:44)
[2022-02-10] MEDS: Mirtazapine 15 MG Tablet 7.5 MG PO (20:53)
[2022-02-10 21:00] VITALS: PULSE 74; RESP 16; O2SAT 93
[2022-02-10] MEDS: oxyCODONE 5 MG Tablet PO (21:00)
[2022-02-11] MEDS: LORazepam 1 MG Tablet PO ×2 (06:43→17:53)
[2022-02-11] MEDS: Acetaminophen 500 MG Tablet 1000 MG PO ×2 (06:44→21:52)
[2022-02-11] MEDS: Polyethylene Glycol 3350 17 GM PACKET PO (06:45)
[2022-02-11] MEDS: Oxymetazoline 0.05% 1 SPRAY SPRAY.BTL NASAL ×2 (06:45→17:57)
[2022-02-11] MEDS: NYSTATIN 500,000 UNIT/5 ML UDC 500000 UNIT PO ×3 (06:45→17:53)
[2022-02-11] MEDS: Enoxaparin 40 MG/0.4 ML Syringe SC (06:45)
[2022-02-11] MEDS: Menthol/Lanolin/Calamine/Znox 113 GM Tube 1 APPLIC TOPICAL ×2 (06:46→17:54)
[2022-02-11] MEDS: DULoxetine Hcl 60 MG Capsule PO (06:46)
[2022-02-11] MEDS: Petrolatum,White 5 GM PACKET 1 APPLIC TOPICAL ×2 (06:47→17:58)
[2022-02-11] MEDS: Furosemide 20 MG Tablet PO (06:48)
[2022-02-11] MEDS: oxyCODONE HCl Cr 10 MG Tablet 20 MG PO ×2 (06:52→17:53)
[2022-02-11] MEDS: Ensure Plus High Protein 120 ML LIQUID PO ×4 (06:55→21:51)
[2022-02-11] MEDS: Folic Acid 1 MG Tablet PO (07:50)
[2022-02-11] MEDS: Tamsulosin HCl 0.4 MG Capsule 0.8 MG PO (07:50)
[2022-02-11 16:00] VITALS: BP 117/61; PULSE 72; RESP 16; TEMP 36.4; O2SAT 94
--- NOTE | 2022-02-11 17:22 | PCM.PROGNOTE ---
Subjective Subjective Patient was seen this afternoon for follow up on left foot/ankle. He relates there is less pain. He is resting in bed. He has no new complaints. No complaints of fever, chills, nausea or vomiting. Objective Data Objective Data Vital Signs: Vital Signs Temp Pulse Resp BP Pulse Ox O2 Del Method 97.6 F L 72 16 117/61 94 Room Air 02/11/22 16:00 02/11/22 16:00 02/11/22 16:00 02/11/22 16:00 02/11/22 16:00 02/11/22 16:00 Oxygen Delivery Method Room Air Weight: 71.668 kg Body Mass Index (BMI) 23.3 Intake & Output: Intake and Output for Last 24 Hours 02/09/22 02/10/22 02/11/22 23:59 23:59 23:59 Intake Total 1200 / 1200 1440 / 1440 780 / 780 Balance 1200 / 1200 1440 / 1440 780 / 780 Lab / Micro Data Result Diagrams: 02/07/22 05:06 02/07/22 05:06 Micro: Microbiology 01/31/22 20:20 Urine, Clean Catch Urine Culture - Final Staphylococcus haemolyticus 01/30/22 08:25 Nasal Secretion SARS-CoV-2 Antigen (Rapid) - Final 01/26/22 09:40 Urine, Clean Catch Urine Culture - Final Culture exhibits no growth. Physical Exam Narrative Right foot/ankle/leg - incision site posterior heel and ankle well coapted with sutures intact, no dehiscence, there is no bleeding, no open lesion, there is no cellulitis, no fluctuance, no crepitus, no maloder, no necrosis, no blistering present; there is some ecchymosis to the ankle/foot c/w normal post op course - but much improved, CFT < 2 seconds to all toes with normal temperature present, there is some edema to the foot/ankle c/w normal post op course - it is less than last visit, no edema to the leg, no calf pain. Calf is soft and supple with no evidence of DVT bilateral. Post op alignment appears to be maintained clinically with right foot plantigrade. Right STJ and ankle rigid c/w arthrodesis. No evidence of compartment syndrome right foot\ankle/leg. Const alert, oriented x3 and no apparent distress Assessment & Plan Assessment/Plan (1) Arthritis of ankle, right: (2) Pain in right ankle and joints of right foot: PLAN: Plan s/p right tibiotalocalcaneal arthrodesis on 01/21/2022 - Foot/ankle doing well at this time. No weightbearing right foot. Keep right foot elevated with heel offloaded. Bandage changed - no evidence of infection and site healing well. Applied gauze, kerlix and harsha dressing with well padded posterior splint with heel offloaded. Keep dressing/splint right foot/ankle/leg clean, dry and intact. Pain management: Oxycodone, Oxycotin, and acetaminophen. DVT Prophylaxis: Lovenox 40mg subcutaneous daily. Will continue to follow weekly, sooner if needed. Discharge planning - patient has many risks factors - recommend patient continue to stay in nursing facility at this time to receive proper care while ankle continues to heal.
[2022-02-11] MEDS: Senna/Docusate Sodium 1 Tablet 2 TABLET PO (17:53)
--- NOTE | 2022-02-11 18:30 | NURSING ---
dr gong in & saw pt. wants pt to get his methotrexate injection that he gets weekly for psoriatic arthritis. spoke with Dr tejada and Scarlett in pharmacy. pt to get it on Wednesday 02/14 20mg SC injection. The IV Simponi that pt gets every 4 weeks will wait until pt follows up with his doctor after discharge on 02/19/22
[2022-02-11] MEDS: Mirtazapine 15 MG Tablet 7.5 MG PO (21:52)
[2022-02-11] MEDS: oxyCODONE 5 MG Tablet PO (21:53)
[2022-02-12] MEDS: Triamcinolone Acetonide 0.1% Cream 15 gm 1 APPLIC TOPICAL (05:38)
[2022-02-12] MEDS: Ensure Plus High Protein 120 ML LIQUID PO ×4 (05:39→21:42)
[2022-02-12] MEDS: Oxymetazoline 0.05% 1 SPRAY SPRAY.BTL NASAL ×2 (05:39→17:12)
[2022-02-12] MEDS: Polyethylene Glycol 3350 17 GM PACKET PO (05:40)
[2022-02-12] MEDS: Furosemide 20 MG Tablet PO (05:41)
[2022-02-12] MEDS: DULoxetine Hcl 60 MG Capsule PO (05:41)
[2022-02-12] MEDS: Enoxaparin 40 MG/0.4 ML Syringe SC (05:42)
[2022-02-12] MEDS: Senna/Docusate Sodium 1 Tablet 2 TABLET PO ×2 (05:42→17:14)
[2022-02-12] MEDS: oxyCODONE HCl Cr 10 MG Tablet 20 MG PO ×2 (05:42→17:13)
[2022-02-12] MEDS: LORazepam 1 MG Tablet PO (05:42)
[2022-02-12] MEDS: Menthol/Lanolin/Calamine/Znox 113 GM Tube 1 APPLIC TOPICAL ×2 (05:49→17:16)
[2022-02-12] MEDS: Petrolatum,White 5 GM PACKET 1 APPLIC TOPICAL ×2 (05:49→17:14)
[2022-02-12] MEDS: Folic Acid 1 MG Tablet PO (08:49)
[2022-02-12] MEDS: Tamsulosin HCl 0.4 MG Capsule 0.8 MG PO (08:50)
[2022-02-12 15:03] VITALS: BP 123/66; PULSE 76; RESP 18; TEMP 36.8; O2SAT 95
[2022-02-12] MEDS: Acetaminophen 500 MG Tablet 1000 MG PO (17:13)
[2022-02-12] MEDS: Mirtazapine 15 MG Tablet 7.5 MG PO (21:38)
[2022-02-12] MEDS: oxyCODONE 5 MG Tablet PO (21:54)
[2022-02-13] MEDS: LORazepam 1 MG Tablet PO ×2 (00:48→21:27)
[2022-02-13] MEDS: Oxymetazoline 0.05% 1 SPRAY SPRAY.BTL NASAL ×2 (00:49→17:33)
[2022-02-13] MEDS: oxyCODONE HCl Cr 10 MG Tablet 20 MG PO ×2 (06:09→17:32)
[2022-02-13] MEDS: Furosemide 20 MG Tablet PO (06:09)
[2022-02-13] MEDS: Ensure Plus High Protein 120 ML LIQUID PO ×4 (06:09→21:23)
[2022-02-13] MEDS: Petrolatum,White 5 GM PACKET 1 APPLIC TOPICAL ×2 (06:09→17:34)
[2022-02-13] MEDS: Enoxaparin 40 MG/0.4 ML Syringe SC (06:09)
[2022-02-13] MEDS: DULoxetine Hcl 60 MG Capsule PO (06:10)
[2022-02-13] MEDS: Senna/Docusate Sodium 1 Tablet 2 TABLET PO ×2 (06:10→17:35)
[2022-02-13] MEDS: Polyethylene Glycol 3350 17 GM PACKET PO (06:10)
[2022-02-13] MEDS: Menthol/Lanolin/Calamine/Znox 113 GM Tube 1 APPLIC TOPICAL ×2 (06:15→17:35)
[2022-02-13] MEDS: Folic Acid 1 MG Tablet PO (08:27)
[2022-02-13] MEDS: Tamsulosin HCl 0.4 MG Capsule 0.8 MG PO (08:27)
[2022-02-13] MEDS: oxyCODONE 5 MG Tablet PO ×2 (14:18→21:28)
[2022-02-13 15:29] VITALS: BP 116/58; PULSE 78; RESP 16; TEMP 36.8; O2SAT 95
[2022-02-13] MEDS: Acetaminophen 500 MG Tablet 1000 MG PO (17:40)
[2022-02-13] MEDS: Mirtazapine 15 MG Tablet 7.5 MG PO (21:26)
[2022-02-13 21:30] VITALS: PULSE 66; RESP 16
--- NOTE | 2022-02-14 01:16 | NURSING ---
Patient c/o burning and some tightness around his right ankle. Dressing is in place. To be seen by Dr. Vidal Monday prior to discharge. Toes are pink, warm to touch, cap refill < 3. Will continue to monitor.
[2022-02-14] MEDS: Senna/Docusate Sodium 1 Tablet 2 TABLET PO ×2 (05:49→17:58)
[2022-02-14] MEDS: oxyCODONE HCl Cr 10 MG Tablet 20 MG PO ×2 (05:49→17:57)
[2022-02-14] MEDS: Furosemide 20 MG Tablet PO (05:49)
[2022-02-14] MEDS: Polyethylene Glycol 3350 17 GM PACKET PO (05:49)
[2022-02-14] MEDS: Ensure Plus High Protein 120 ML LIQUID PO ×3 (05:49→22:13)
[2022-02-14] MEDS: DULoxetine Hcl 60 MG Capsule PO (05:49)
[2022-02-14] MEDS: Enoxaparin 40 MG/0.4 ML Syringe SC (05:52)
[2022-02-14] MEDS: Oxymetazoline 0.05% 1 SPRAY SPRAY.BTL NASAL ×2 (05:53→22:11)
[2022-02-14] MEDS: Petrolatum,White 5 GM PACKET 1 APPLIC TOPICAL ×2 (05:53→17:58)
[2022-02-14] MEDS: Menthol/Lanolin/Calamine/Znox 113 GM Tube 1 APPLIC TOPICAL ×2 (05:57→17:59)
[2022-02-14 06:32] LABS: Absolute Lymphocyte Count 2.09 X10^3/uL (0.83-4.51); Absolute Neutrophil Count 3.2 X10^3/uL (2.0-7.7); Basophil# 0.06 X10^3/uL; Basophil% 0.9 % (0-1); Eosinophils% 4.6 % (0-5); Hematocrit 31.4 % (40-54); Hemoglobin 10.2 g/dL (13.0-16.5); Lymphocyte # 2.09 X10^3/ul (0.83-4.51); Lymphocyte % 32.4 % (19-41); Mean Corp Hgb Conc 32.5 g/dL (32-36); Mean Corpuscular Hgb 32.2 pg (27.0-32.0); Mean Corpuscular Volume 99.1 fL (80-94); Mean Platelet Vol. 10.7 fl (6.2-12.0); Monocyte# 0.75 X10^3/uL; Monocyte% 11.6 % (0-10); NRBC Flagged by Analyzer 0 % (0-5); Neutrophil # 3.22 X10^3/uL (2.7-7.7); Neutrophil % 49.9 % (47-70); Platelet Count 243 K/mm3 (150-450); RBC Distribution Width CV 13.8 % (11.6-14.6); RBC Distribution Width SD 49.5 fl (35.1-43.9); Red Blood Count 3.17 M/mm3 (4.6-6.2); White Blood Count 6.5 K/mm3 (4.4-11.0)
[2022-02-14 06:51] LABS: Anion Gap 5 (5-15); BUN 29 mg/dL (7-18); BUN/Creat Ratio 29.6 RATIO (10-20); Calcium,Total 9.1 mg/dL (8.5-10.1); Chloride 99 mmol/L (98-107); Creatinine, Serum 0.98 mg/dL (0.70-1.30); EST Glomerular Filtration Rate 78 mL/min (>60); Est Glom Filt Rate - Afr Amer 95 mL/min (>60); Estimated Creatinine Clearance 61.96 ml/min; Glucose 92 mg/dL (74-106); Sodium Level 135 mmol/L (136-145)
[2022-02-14] MEDS: Tamsulosin HCl 0.4 MG Capsule 0.8 MG PO (08:31)
[2022-02-14] MEDS: Folic Acid 1 MG Tablet PO (08:32)
[2022-02-14] MEDS: Acetaminophen 500 MG Tablet 1000 MG PO (08:37)
[2022-02-14] MEDS: oxyCODONE 5 MG Tablet PO ×2 (08:38→22:09)
[2022-02-14] MEDS: LORazepam 1 MG Tablet PO ×2 (09:30→22:10)
[2022-02-14 09:31] VITALS: BP 143/65; PULSE 75; RESP 16; TEMP 36.6; O2SAT 95
[2022-02-14 09:48] VITALS: PULSE 75; RESP 16; O2SAT 95
[2022-02-14] MEDS: Mirtazapine 15 MG Tablet 7.5 MG PO (22:11)
[2022-02-15] MEDS: Ensure Plus High Protein 120 ML LIQUID PO ×2 (06:18→11:58)
[2022-02-15] MEDS: Enoxaparin 40 MG/0.4 ML Syringe SC (06:18)
[2022-02-15] MEDS: oxyCODONE HCl Cr 10 MG Tablet 20 MG PO ×2 (06:18→17:46)
[2022-02-15] MEDS: Oxymetazoline 0.05% 1 SPRAY SPRAY.BTL NASAL ×2 (06:18→19:57)
[2022-02-15] MEDS: DULoxetine Hcl 60 MG Capsule PO (06:19)
[2022-02-15] MEDS: Furosemide 20 MG Tablet PO (06:19)
[2022-02-15] MEDS: Polyethylene Glycol 3350 17 GM PACKET PO (06:19)
[2022-02-15] MEDS: Menthol/Lanolin/Calamine/Znox 113 GM Tube 1 APPLIC TOPICAL ×2 (06:19→17:46)
[2022-02-15] MEDS: Senna/Docusate Sodium 1 Tablet 2 TABLET PO ×2 (06:19→17:46)
[2022-02-15] MEDS: Triamcinolone Acetonide 0.1% Cream 15 gm 1 APPLIC TOPICAL (06:32)
[2022-02-15] MEDS: Folic Acid 1 MG Tablet PO (07:47)
[2022-02-15] MEDS: Tamsulosin HCl 0.4 MG Capsule 0.8 MG PO (07:47)
--- NOTE | 2022-02-15 10:39 | CASEMGMT ---
Social Work Received call from , stating pt does not want HHC at [place]. Pt is doing well and will continue with HEP. Notified [facility]. Sloane Grace ,WATER PUMP OPERATOR VOCATIONAL TEACHER
[2022-02-15] MEDS: Petrolatum,White 5 GM PACKET 1 APPLIC TOPICAL ×2 (11:19→20:01)
[2022-02-15 14:00] VITALS: BP 109/62; PULSE 72; RESP 16; TEMP 36.6; O2SAT 95
[2022-02-15] MEDS: oxyCODONE 5 MG Tablet PO (14:31)
[2022-02-15] MEDS: LORazepam 1 MG Tablet PO (19:59)
[2022-02-15] MEDS: Mirtazapine 15 MG Tablet 7.5 MG PO (19:59)
[2022-02-15 21:52] VITALS: PULSE 69; RESP 16; O2SAT 94
[2022-02-16] MEDS: Oxymetazoline 0.05% 1 SPRAY SPRAY.BTL NASAL ×2 (06:41→20:45)
[2022-02-16] MEDS: Polyethylene Glycol 3350 17 GM PACKET PO (06:42)
[2022-02-16] MEDS: oxyCODONE HCl Cr 10 MG Tablet 20 MG PO ×2 (06:42→17:43)
[2022-02-16] MEDS: DULoxetine Hcl 60 MG Capsule PO (06:43)
[2022-02-16] MEDS: Enoxaparin 40 MG/0.4 ML Syringe SC (06:43)
[2022-02-16] MEDS: Furosemide 20 MG Tablet PO (06:43)
[2022-02-16] MEDS: Senna/Docusate Sodium 1 Tablet 2 TABLET PO ×2 (06:43→17:44)
[2022-02-16] MEDS: Menthol/Lanolin/Calamine/Znox 113 GM Tube 1 APPLIC TOPICAL ×2 (06:45→17:45)
[2022-02-16] MEDS: Folic Acid 1 MG Tablet PO (08:31)
[2022-02-16] MEDS: Tamsulosin HCl 0.4 MG Capsule 0.8 MG PO (08:31)
[2022-02-16] MEDS: Petrolatum,White 5 GM PACKET 1 APPLIC TOPICAL ×2 (08:36→20:45)
[2022-02-16] MEDS: Acetaminophen 500 MG Tablet 1000 MG PO (10:36)
[2022-02-16 10:48] VITALS: BP 135/69; PULSE 70; RESP 18; TEMP 36.9; O2SAT 95
[2022-02-16 10:49] VITALS: PULSE 70; O2SAT 95
[2022-02-16] MEDS: oxyCODONE 5 MG Tablet PO (20:40)
[2022-02-16] MEDS: Mirtazapine 15 MG Tablet 7.5 MG PO (20:40)
[2022-02-16] MEDS: LORazepam 1 MG Tablet PO (20:40)
[2022-02-17] MEDS: Oxymetazoline 0.05% 1 SPRAY SPRAY.BTL NASAL ×2 (05:47→20:32)
[2022-02-17] MEDS: oxyCODONE HCl Cr 10 MG Tablet 20 MG PO ×2 (05:47→17:04)
[2022-02-17] MEDS: Polyethylene Glycol 3350 17 GM PACKET PO (05:48)
[2022-02-17] MEDS: Senna/Docusate Sodium 1 Tablet 2 TABLET PO ×2 (05:48→17:05)
[2022-02-17] MEDS: Furosemide 20 MG Tablet PO (05:48)
[2022-02-17] MEDS: Enoxaparin 40 MG/0.4 ML Syringe SC (05:48)
[2022-02-17] MEDS: DULoxetine Hcl 60 MG Capsule PO (05:48)
[2022-02-17] MEDS: Menthol/Lanolin/Calamine/Znox 113 GM Tube 1 APPLIC TOPICAL ×2 (05:55→17:05)
[2022-02-17] MEDS: Tamsulosin HCl 0.4 MG Capsule 0.8 MG PO (08:23)
[2022-02-17] MEDS: Folic Acid 1 MG Tablet PO (08:23)
[2022-02-17] MEDS: Petrolatum,White 5 GM PACKET 1 APPLIC TOPICAL ×2 (12:25→20:31)
[2022-02-17] MEDS: oxyCODONE 5 MG Tablet PO ×2 (14:26→20:30)
--- NOTE | 2022-02-17 14:29 | MDS.RN ---
Pain interview for INDERJIT 02/19/22
[2022-02-17 16:00] VITALS: BP 112/68; PULSE 64; RESP 16; TEMP 37.1; O2SAT 96
[2022-02-17 19:41] VITALS: PULSE 82; RESP 16; O2SAT 97
[2022-02-17] MEDS: LORazepam 1 MG Tablet PO (20:31)
[2022-02-17] MEDS: Mirtazapine 15 MG Tablet 7.5 MG PO (20:33)
[2022-02-17] MEDS: Triamcinolone Acetonide 0.1% Cream 15 gm 1 APPLIC TOPICAL (20:42)
[2022-02-18] MEDS: Ensure Plus High Protein 120 ML LIQUID PO ×2 (06:34→17:58)
[2022-02-18] MEDS: oxyCODONE HCl Cr 10 MG Tablet 20 MG PO ×2 (06:34→17:57)
[2022-02-18] MEDS: DULoxetine Hcl 60 MG Capsule PO (06:35)
[2022-02-18] MEDS: Furosemide 20 MG Tablet PO (06:35)
[2022-02-18] MEDS: Polyethylene Glycol 3350 17 GM PACKET PO (06:35)
[2022-02-18] MEDS: Enoxaparin 40 MG/0.4 ML Syringe SC (06:35)
[2022-02-18] MEDS: Menthol/Lanolin/Calamine/Znox 113 GM Tube 1 APPLIC TOPICAL (06:35)
[2022-02-18] MEDS: Senna/Docusate Sodium 1 Tablet 2 TABLET PO ×2 (06:35→17:59)
[2022-02-18] MEDS: Oxymetazoline 0.05% 1 SPRAY SPRAY.BTL NASAL ×2 (06:36→20:26)
[2022-02-18] MEDS: Folic Acid 1 MG Tablet PO (09:00)
[2022-02-18] MEDS: Tamsulosin HCl 0.4 MG Capsule 0.8 MG PO (09:00)
[2022-02-18] MEDS: oxyCODONE 5 MG Tablet PO ×2 (09:14→20:25)
[2022-02-18] MEDS: Petrolatum,White 5 GM PACKET 1 APPLIC TOPICAL ×2 (11:22→20:24)
--- NOTE | 2022-02-18 14:10 | PCM.PROGNOTE ---
Subjective Subjective Patient was seen this afternoon for follow up on right ankle and subtalar joint arthrodesis. He relates bandage felt tight this week, it was loosened and it provided relief. No pain at this time. No complaints of fever, chills, nausea, vomiting, or calf pain. Objective Data Objective Data Vital Signs: Vital Signs Temp Pulse Resp BP Pulse Ox O2 Del Method 98.8 F 82 16 112/68 97 Room Air 02/17/22 16:00 02/17/22 19:41 02/17/22 19:41 02/17/22 16:00 02/17/22 19:41 02/17/22 19:41 Oxygen Delivery Method Room Air Weight: 74.616 kg Body Mass Index (BMI) 23.3 Intake & Output: Intake and Output for Last 24 Hours 02/16/22 02/17/22 02/18/22 23:59 23:59 23:59 Intake Total 1680 / 1680 1320 / 1320 480 / 480 Balance 1680 / 1680 1320 / 1320 480 / 480 Lab / Micro Data Result Diagrams: 02/14/22 05:23 02/14/22 05:23 Micro: Microbiology 01/31/22 20:20 Urine, Clean Catch Urine Culture - Final Staphylococcus haemolyticus 01/30/22 08:25 Nasal Secretion SARS-CoV-2 Antigen (Rapid) - Final 01/26/22 09:40 Urine, Clean Catch Urine Culture - Final Culture exhibits no growth. Physical Exam Narrative Right foot/ankle/leg - incision site posterior heel and ankle well coapted with sutures intact, incision is well healed, there is no dehiscence, there is no bleeding, no open lesion, there is no cellulitis, no fluctuance, no crepitus, no maloder, no necrosis, no blistering present; there is some trace residual ecchymosis to the ankle/foot c/w normal post op course - but much improved, CFT < 2 seconds to all toes with normal temperature present, there is some edema to the foot/ankle c/w normal post op course - it is again noted to be less than last visit, no edema to the leg, no calf pain. Calf is soft and supple with no evidence of DVT bilateral. Post op alignment maintained clinically with right foot plantigrade. Right STJ and ankle rigid c/w arthrodesis. No evidence of compartment syndrome right foot/ankle/leg. Const alert, oriented x3 and no apparent distress Assessment & Plan Assessment/Plan (1) Arthritis of ankle, right: (2) Pain in right ankle and joints of right foot: PLAN: Plan s/p right tibiotalocalcaneal arthrodesis on 01/21/2022 - Foot/ankle doing well at this time. No weightbearing right foot. Keep right foot elevated with heel offloaded. Bandage changed - removed sutures from incision site without incident - no evidence of infection and site healing well. Applied betadine soln to incision site, and overlying gauze, kerlix and harsha dressing with well padded posterior splint with heel offloaded. Keep dressing/splint right foot/ankle/leg clean, dry and intact. Pain management: Oxycodone, Oxycotin, and acetaminophen. DVT Prophylaxis: Patient completing course of Lovenox 40mg subcutaneous daily. Plan for discharge home tomorrow.
--- NOTE | 2022-02-18 15:30 | CASEMGMT ---
Social Work BIMS () and PHQ-9 (06/20) completed for MDS assessment THEODORE VazquezW
[2022-02-18 15:34] VITALS: BP 122/73; PULSE 83; RESP 16; TEMP 36.4; O2SAT 94
--- NOTE | 2022-02-18 17:40 | RAD_ITS ---
EXAM: XR RIGHT ANKLE COMPLETE, 3 OR MORE VIEWS CLINICAL INDICATION: post op TECHNIQUE: Frontal, lateral and oblique views of the right ankle. This report was created using [facility] report generation technology. COMPARISON: 02.04.22. FINDINGS: BONES/JOINTS: There is a metal sideplate transfixing the distal tibia to the talus to the calcaneus. There are cortical screws holding the plate in place. There is an enthesophyte involving the posterior superior calcaneus at the site of insertion of the Achilles tendon. Talar spur noted. No acute fracture. No subluxation. Normal alignment. Preservation of the joint space. No sclerotic or destructive changes observed. SOFT TISSUES: Diffuse soft tissue swelling overlying the ankle. This is likely related to recent surgery. No radiopaque foreign body. OTHER FINDINGS: Fiberglas splint in place. RAD/Ankle min 3 Views IMPRESSION: Diffuse soft tissue swelling overlying the ankle has improved slightly since the prior study. Electronically Signed: Bart Martin MD at 17:56 EDT ,
[2022-02-18 17:47] VITALS: PULSE 78; RESP 18; O2SAT 98
[2022-02-18] MEDS: LORazepam 1 MG Tablet PO (18:05)
[2022-02-18] MEDS: Mirtazapine 15 MG Tablet 7.5 MG PO (20:27)
[2022-02-18] MEDS: Acetaminophen 500 MG Tablet 1000 MG PO (22:23)
[2022-02-18] MEDS: tiZANidine HCl 2 MG Tablet 4 MG PO (22:46)
[2022-02-19] MEDS: Oxymetazoline 0.05% 1 SPRAY SPRAY.BTL NASAL (03:27)
[2022-02-19] MEDS: oxyCODONE HCl Cr 10 MG Tablet 20 MG PO (05:12)
[2022-02-19] MEDS: Acetaminophen 500 MG Tablet 1000 MG PO (05:12)
[2022-02-19] MEDS: Enoxaparin 40 MG/0.4 ML Syringe SC (05:13)
[2022-02-19] MEDS: Polyethylene Glycol 3350 17 GM PACKET PO (05:13)
[2022-02-19] MEDS: Senna/Docusate Sodium 1 Tablet 2 TABLET PO (05:13)
[2022-02-19] MEDS: DULoxetine Hcl 60 MG Capsule PO (05:13)
[2022-02-19] MEDS: Furosemide 20 MG Tablet PO (05:13)
[2022-02-19] MEDS: Ensure Plus High Protein 120 ML LIQUID PO (05:18)
[2022-02-19] MEDS: Tamsulosin HCl 0.4 MG Capsule 0.8 MG PO (07:37)
[2022-02-19] MEDS: Folic Acid 1 MG Tablet PO (07:37)
[2022-02-19 07:47] VITALS: PULSE 74; RESP 16; O2SAT 97
[2022-02-19] MEDS: oxyCODONE 5 MG Tablet PO (08:51)
--- NOTE | 2022-02-19 09:11 | NURSING ---
Reviewed DC instructions with patient and girlfriend at bedside. They had no questions. Clarified w/ Dr. Ding by phone that patient was to stop lovenox at home, written and verbal instruction given to patient and girlfriend that med was stopped.
[2022-02-19 09:14] VITALS: BP 104/70; PULSE 71; RESP 16; TEMP 36.6; O2SAT 97
== END 2022-02-19 08:55 | disposition home health service (06) | DRG 560 ==
PROVIDERS: Admitting Provider Family Medicine Geriatric Medicine; PCP Family Medicine; Referring Provider Family Medicine Geriatric Medicine; Visit Provider Family Medicine Geriatric Medicine
DX: Z47.89 Encounter for other orthopedic aftercare (principal); F10.239 Alcohol dependence with withdrawal, unspecified; F13.20 Sedative, hypnotic or anxiolytic dependence, uncomplicated; L40.50 Arthropathic psoriasis, unspecified; F10.10 Alcohol abuse, uncomplicated; M19.071 Primary osteoarthritis, right ankle and foot; F41.9 Anxiety disorder, unspecified; N40.1 Benign prostatic hyperplasia with lower urinary tract symptoms; Z23 Encounter for immunization; Z98.1 Arthrodesis status; Z79.899 Other long term (current) drug therapy; R33.8 Other retention of urine; C44.209 Unspecified malignant neoplasm of skin of left ear and external auricular canal
CPT/HCPCS: 36415; 73610; 74018; 80048; 81001; 85025; 87077; 87086; 87088; 87186; 87426; 92507; 92523; 97110; 97116; 97150; 97162; 97166; 97530; 97535; G0008; 90686; A4216; J9250

== ENCOUNTER → 2022-07-19 | Outpatient (CLI) | payer MEDICARE, OTHER, SELFPAY ==
--- NOTE | 2022-07-19 07:44 | CT_ITS ---
CT RIGHT LOWER EXTREMITY WITH 3-D IMAGING CLINICAL INDICATION: S/P TIBITALOOCALCANEAL ARTHRODESIS COMPARISON: TECHNIQUE: Axial CT images of the RIGHT lower extremity was performed without IV contrast material. Coronal and sagittal reformats were provided. RADIATION DOSAGE (If Supplied By Facility): CTDIvol = ( 15.35 ) mGy, DLP = ( 439.42 ) mGycm FINDINGS: Bones: The patient is status post plate and screw fixation along the posterior aspect of the distal tibia. There is arthrodesis of the tibial talar calcaneal joints. There is evidence of patchy osteoporosis of the visualized bony structures. There is evidence of a bone grafting at the level of the posterior aspect of the talus. No definite bony healing is seen. There is evidence of the compressive deformity of the posterior talus. Soft Tissues: Soft tissue swelling. CT/Extremity Lower without Contra IMPRESSION: Status post tibial talocalcaneal arthrodesis with metallic plate and screw fixation device as described. Bone grafting along the body and posterior aspect of the talus with no definite evidence of healing. There is deformity of the posterior aspect of the talus with compressive deformity. Electronically Signed: Lonnie Santos MD at 10:17 EDT ,
== END | disposition home or self-care (01) ==
PROVIDERS: PCP Family Medicine; Referring Provider Podiatrist; Visit Provider Podiatrist
DX: Z98.1 Arthrodesis status (principal)
CPT/HCPCS: 73700

== ENCOUNTER 2022-09-27 12:38 | Outpatient (CLI) | payer MEDICARE, OTHER, SELFPAY ==
[2022-09-27 15:27] LABS: Vitamin D,25 Hydroxy 37.7 ng/mL
[2022-09-27 15:37] LABS: ALB/GLOB Ratio 1.2 RATIO (0.9-2.4); AST(SGOT) 26 U/L (15-37); Alanine Aminotransfer ALT/SGPT 18 U/L (16-61); Albumin, Serum 3.6 g/dL (3.2-5.0); Alkaline Phosphatase 79 U/L (45-117); Anion Gap 3 (5-15); BUN 15 mg/dL (7-18); BUN/Creat Ratio 16.1 RATIO (10-20); Calcium,Total 8.9 mg/dL (8.5-10.1); Chloride 100 mmol/L (98-107); Creatinine, Serum 0.93 mg/dL (0.70-1.30); EST Glomerular Filtration Rate 83 mL/min (>60); Est Glom Filt Rate - Afr Amer 100 mL/min (>60); Globulin 3.1 g/dL (2.2-4.2); Glucose 107 mg/dL (74-106); Potassium 4.2 mmol/L (3.5-5.1); Protein, Total 6.7 g/dL (6.4-8.2); Sodium Level 132 mmol/L (136-145)
== END 2022-09-27 23:59 | disposition home or self-care (01) ==
LOC: MTLAB 12:39
PROVIDERS: PCP Family Medicine; Referring Provider Podiatrist; Visit Provider Podiatrist
DX: M19.071 Primary osteoarthritis, right ankle and foot (principal); E55.9 Vitamin D deficiency, unspecified
CPT/HCPCS: 36415; 80053; 82306